=== PATIENT | female | born 1965 | race Hispanic/Latino ===

== ENCOUNTER 2017-06-27 12:34 | Emergency (ER) | payer BC, OTHER ==
[2017-06-27 14:12] LABS: Urine Blood TRACE (NEG); Urine Glucose NEGATIVE (NEG); Urine Protein NEGATIVE (NEG); Urine Specific Gravity <1.005 (1.005-1.030)
--- NOTE | 2017-06-27 14:33 | RAD REPORT ---
EXAM DESCRIPTION: CT - Head Brain Wo Cont - 06/27/2017 2:15 pm CLINICAL HISTORY: Headache COMPARISON: None. TECHNIQUE: All CT scans are performed using dose optimization technique as appropriate and may inclu de automated exposure control or mA/KV adjustment according to patient size. FINDINGS: No intracranial hemorrhage, hydrocephalus or extra-axial fluid collection.No areas of brai n edema or evidence of midline shift. The paranasal sinuses and mastoids are clear. The calvarium is intact. IMPRESSION: No acute intracranial abnormality.
--- NOTE | 2017-06-27 14:59 | RAD REPORT ---
EXAM DESCRIPTION: MRI - Brain Wo Cont - 06/27/2017 2:46 pm CLINICAL HISTORY: Headache, CVA, TIA. COMPARISON: CT head 06/27/2017 TECHNIQUE: Multi-sequence, multiplanar MR imaging of the brain was performed without contrast. FINDINGS: No intracranial hemorrhage, hydrocephalus or extra-axial fluid collections. No edema or sh ift of midline structures. No findings to suspect brain mass. DWI is negative for acute CVA. Midline structures are normally formed. Mastoid air cells and paranasal sinuses are clear. IMPRESSION: No acute or concerning intracranial abnormalities.
[2017-06-27 15:40] LABS: BUN Blood Urea Nitrogen 8 mg/dL (6-20); Bicarbonate 25 mEq/L (21-31); Glomerular Filtration Rate > 90 mL/min (=/>90); Glucose Level 93 mg/dL (65-120); Potassium 3.6 mEq/L (3.6-5.0); Sodium Level 142 mEq/L (135-145)
[2017-06-27] MEDS ORDERED: IBUPROFEN 400 MG TAB ONE (15:41)
[2017-06-27 15:46] LABS: Absolute Lymphocytes (CBC) 3.6 K/uL (0.7-4.9); Absolute Monocytes 0.5 K/uL (0.1-1.3); Absolute Neutrophil 5.1 K/uL (1.8-8.0); Basophils % 0.7 % (0-1.3); Eosinophils % 0.8 % (0-4.4); Hematocrit 45.4 % (36.0-45.0); Lymphocytes % 38.8 % (15.3-44.8); MCH 32.3 pg (27.0-35.0); MCV 95.4 fL (80-100); Monocytes % 5.3 % (3.3-12.3); RBC Red Blood Cell Count 4.76 M/uL (3.86-4.86)
--- NOTE | 2017-06-27 16:27 | EKG ---
Test Date: 2017-06-27 Test Time: 15:10:06 Therapist Occupational: [employer] RESULTS: Intervals: Rate: 56 NE: 126 QRSD: 80 QT: 484 QTc: 467 Wells: P: 23 NE: 126 QRS: 23 T: 36 INTERPRETIVE STATEMENTS: Sinus bradycardia Otherwise normal ECG No previous ECG available for comparison Electronically Signed On 06-27-17 16:26:41 CDT by Richard Horton
--- NOTE | 2017-06-27 16:39 | EDPHYS ---
Physician Documentation [facility] Name: Selin Ocampo Age: 52 yrs Sex: Female : 1965 Arrival Date: 06/27/2017 Time: 12:38 Bed 14 Private MD: ED Physician Darin Morataya HPI: 06/27 16:34 This 52 yrs old Female presents to ER via Ambulatory with complaints of rn Numbness Of Arm, Numbness Of Mouth, Headache. 16:34 The patient's problem is reported as paresthesias. The patient's problem is reported as rn paresthesias, in left upper extremity, in left side of face. Onset: The symptoms/episode began/occurred 1 week(s) ago. The symptoms are alleviated by nothing. The symptoms are aggravated by nothing. Severity of symptoms: At their worst the symptoms were mild in the emergency department the symptoms are unchanged. The patient has not experienced similar symptoms in the past. 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 . 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 - Social history:: Smoking status: Patient uses tobacco products, denies chronic smoking, but will smoke occasionally. - Family history:: not pertinent. - Hospitalizations: : No recent hospitalization is reported. ROS: 16:34 Constitutional: Negative for fever, chills, and weight loss, Eyes: Negative for injury, rn pain, redness, and discharge, Neck: Negative for injury, pain, and swelling, Cardiovascular: Negative for chest pain, palpitations, and edema, Respiratory: Negative for shortness of breath, cough, wheezing, and pleuritic chest pain, Abdomen/GI: Negative for abdominal pain, nausea, vomiting, diarrhea, and constipation, Back: Negative for injury and pain, MS/Extremity: Negative for injury and deformity, Skin: Negative for injury, rash, and discoloration, Neuro: Negative for headache, weakness, and seizure. Exam: 16:34 Constitutional: This is a well developed, well nourished patient who is awake, alert, rn and in no acute distress. Head/Face: Normocephalic, atraumatic. Eyes: Pupils equal round and reactive to light, extra-ocular motions intact. Lids and lashes normal. Conjunctiva and sclera are non-icteric and not injected. Cornea within normal limits. Periorbital areas with no swelling, redness, or edema. Neck: Trachea midline, no thyromegaly or masses palpated, and no cervical lymphadenopathy. Supple, full range of motion without nuchal rigidity, or vertebral point tenderness. No Meningismus. Cardiovascular: Regular rate and rhythm with a normal S1 and S2. No gallops, murmurs, or rubs. Normal PMI, no JVD. No pulse deficits. Respiratory: Lungs have equal breath sounds bilaterally, clear to auscultation and percussion. No rales, rhonchi or wheezes noted. No increased work of breathing, no retractions or nasal flaring. Abdomen/GI: Soft, non-tender, with normal bowel sounds. No distension or tympany. No guarding or rebound. No evidence of tenderness throughout. Back: No spinal tenderness. No costovertebral tenderness. Full range of motion. MS/ Extremity: Pulses equal, no cyanosis. Neurovascular intact. Full, normal range of motion. Equal circumference. Neuro: Awake and alert, GCS 15, oriented to person, place, time, and situation. Cranial nerves II-XII grossly intact. Motor strength 5/5 in all extremities. Mild decreased sensation to soft touch LUE distal to elbow, normal sensation of face. Cerebellar exam normal. Normal gait. Vital Signs: 13:13 BP 159 / 102; Pulse 66; Resp 18; Temp 97.8; Pulse Ox 98% on R/A; Weight 79.38 kg; ph Height 5 ft. 3 in. (160.02 cm); Pain 8/10; 14:10 BP 129 / 94; Pulse 67; Resp 19; Pulse Ox 99% on R/A; rb1 15:09 BP 129 / 76; Pulse 68; Resp 17; Pulse Ox 98% on R/A; rb1 16:00 BP 111 / 71; Pulse 58; Resp 19; Pulse Ox 97% on R/A; rb1 17:00 BP 101 / 76; Pulse 63; Resp 17; Pulse Ox 99% on R/A; rb1 13:13 Body Mass Index 31.00 (79.38 kg, 160.02 cm) ph MDM: 13:31 Patient medically screened. rn 16:34 Differential diagnosis: CVA, TIA, metabolic disorder. Differential diagnosis: rn radiculopathy. Data reviewed: vital signs, nurses notes, lab test result(s), EKG, radiologic studies, CT scan, MRI, and as a result, I will discharge patient. Counseling: I had a detailed discussion with the patient and/or guardian regarding: the historical points, exam findings, and any diagnostic results supporting the discharge/admit diagnosis, lab results, radiology results, the need for outpatient follow up, to return to the emergency department if symptoms worsen or persist or if there are any questions or concerns that arise at home. Response to treatment: the patient's symptoms have mildly improved after treatment. Special discussion: I discussed with the patient/guardian in detail that at this point there is no indication for admission to the hospital. It is understood, however, that if the symptoms persist or worsen the patient needs to return immediately for re-evaluation. 06/27 13:38 Order name: Urine Dipstick--Ancillary (enter results); Complete Time: 15:02 jw5 06/27 13:40 Order name: CBC with Diff; Complete Time: 16:39 06/27 13:40 Order name: CT Head Brain wo Cont; Complete Time: 15:02 06/27 13:40 Order name: Basic Metabolic Panel; Complete Time: 16:39 rn 06/27 13:41 Order name: Brain Wo Cont MRI; Complete Time: 15:02 rn 06/27 13:40 Order name: IV Start; Complete Time: 14:51 rn 06/27 13:40 Order name: EKG; Complete Time: 13:40 rn 06/27 13:40 Order name: EKG - Nurse/Tech; Complete Time: 20:09 rn Administered Medications: 15:43 Drug: Ibuprofen 800 mg Route: PO; rb1 16:09 Follow up: Response: No adverse reaction; Pain is decreased rb1 Disposition: 06/27/17 16:39 Discharged to Home. Impression: Paresthesia of skin, Radiculopathy, cervical region. - Condition is Stable. - Discharge Instructions: Cervical Radiculopathy, Paresthesia. - Prescriptions for Medrol (Estiven) 4 mg Oral Tablets, Dose Pack - take 1 tablet by ORAL route as directed - follow package instructions; 1 packet. - Medication Reconciliation Form, Thank You Letter, Antibiotic Education, Prescription Opioid Use form. - Follow up: Private Physician; When: As needed; Reason: Recheck today's complaints, Re-evaluation by your physician. - Problem is an ongoing problem. - Symptoms have improved. Signatures: Dispatcher [employer] EDDarin Maldonado MD MD rn Latasha Trivedi RN RN Yvonne Wharton RN RN rb1
--- NOTE | 2017-06-27 16:39 | ER ---
Nurse's Notes [facility] Name: Selin Ocampo Age: 52 yrs Sex: Female : 1965 Arrival Date: 06/27/2017 Time: 12:38 Bed 14 Private MD: Diagnosis: Paresthesia of skin;Radiculopathy, cervical region Presentation: 06/27 12:57 Acuity: Unassigned iw 13:09 Presenting complaint: Patient states: " About a week ago I started having a headache ph and my L arm got numb. I am also having numbness in the R side of my mouth." Pt reports that symptoms have been continuous since they began, reports feeling "lightheaded" when symptoms began. Transition of care: patient was not received from another setting of care. Onset of symptoms was June 27, 2017. Initial Sepsis Screen: Does the patient meet any 2 criteria? No. Patient's initial sepsis screen is negative. Does the patient have a suspected source of infection? No. Patient's initial sepsis screen is negative. Care prior to arrival: None. 13:09 Method Of Arrival: Ambulatory ph 13:09 Acuity: CHAD 3 ph Triage Assessment: 13:16 Headache History: Denies prior headaches. rb1 13:16 Pain: Pain began x 1 week ago. rb1 13:16 Pain: Also complains of no other associated symptoms. 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 - Social history:: Smoking status: Patient uses tobacco products, denies chronic smoking, but will smoke occasionally. - Family history:: not pertinent. - Hospitalizations: : No recent hospitalization is reported. Screenin:16 Abuse screen: Denies threats or abuse. Nutritional screening: No deficits noted. rb1 Tuberculosis screening: No symptoms or risk factors identified. Fall Risk None identified. Assessment: 13:16 General: Appears in no apparent distress. comfortable, Behavior is calm, cooperative. rb1 Pain: Complains of pain in left side of head Pain currently is 5 out of 10 on a pain scale. Neuro: Level of Consciousness is awake, alert, obeys commands, Oriented to person, place, time, situation. Neuro: Reports numbness in left arm and left side of face. Cardiovascular: Capillary refill < 3 seconds is brisk in bilateral fingers. Respiratory: Airway is patent Respiratory effort is even, unlabored, Respiratory pattern is regular, symmetrical. GI: No signs and/or symptoms were reported involving the gastrointestinal system. : No signs and/or symptoms were reported regarding the genitourinary system. Derm: Skin is dry, Skin is normal, Skin temperature is warm. Musculoskeletal: Range of motion: intact in all extremities. 14:11 Reassessment: Patient appears in no apparent distress at this time. No changes from rb1 previously documented assessment. 15:00 Reassessment: Patient appears in no apparent distress at this time. Patient and/or rb1 family updated on plan of care and expected duration. Pain level reassessed. Patient is alert, oriented x 3, equal unlabored respirations, skin warm/dry/pink. 16:00 Reassessment: Patient appears in no apparent distress at this time. No changes from rb1 previously documented assessment. 16:55 Reassessment: Discharge pending due to EKG, Dr. Morataya wants to see the EKG before the rb1 pt. is discharged. The EKG has been misplaced. 17:00 Reassessment: Patient appears in no apparent distress at this time. Patient and/or rb1 family updated on plan of care and expected duration. Pain level reassessed. Patient is alert, oriented x 3, equal unlabored respirations, skin warm/dry/pink. Vital Signs: 13:13 BP 159 / 102; Pulse 66; Resp 18; Temp 97.8; Pulse Ox 98% on R/A; Weight 79.38 kg; ph Height 5 ft. 3 in. (160.02 cm); Pain 8/10; 14:10 BP 129 / 94; Pulse 67; Resp 19; Pulse Ox 99% on R/A; rb1 15:09 BP 129 / 76; Pulse 68; Resp 17; Pulse Ox 98% on R/A; rb1 16:00 BP 111 / 71; Pulse 58; Resp 19; Pulse Ox 97% on R/A; rb1 17:00 BP 101 / 76; Pulse 63; Resp 17; Pulse Ox 99% on R/A; rb1 13:13 Body Mass Index 31.00 (79.38 kg, 160.02 cm) ph ED Course: 12:38 Patient arrived in ED. sb2 12:45 Patient's name was called from ER lobby. No response. ph 12:52 Triage completed. ph 13:16 Patient has correct armband on for positive identification. Bed in low position. Call rb1 light in reach. Side rails up X 1. Pulse ox on. NIBP on. 13:16 Arm band placed on right wrist. rb1 13:22 Inserted saline lock: 22 gauge in right antecubital area, using aseptic technique. rb1 ,using aseptic technique. Inserted by LEW Berg Blood collected. 13:26 Yvonne Francis, RN is Primary Nurse. rb1 13:31 Darin Morataya MD is Attending Physician. rn 14:15 CT Head Brain wo Cont In Process Unspecified. EDMS 14:15 CT completed. Patient tolerated procedure well. Patient moved to MRI via wheelchair. kc3 Patient moved back from CT. 14:37 Brain Wo Cont MRI In Process Unspecified. EDMS 14:48 MRI completed. Patient tolerated well. Patient moved back from MRI. ka 15:20 EKG done, by watch repair technician. reviewed by Darin Morataya MD. at1 17:30 No provider procedures requiring assistance completed. IV discontinued, intact, rb1 bleeding controlled, No redness/swelling at site. Pressure dressing applied. Administered Medications: 15:43 Drug: Ibuprofen 800 mg Route: PO; rb1 16:09 Follow up: Response: No adverse reaction; Pain is decreased rb1 Outcome: 16:39 Discharge ordered by MD. rn 17:30 Discharged to home ambulatory. rb1 17:30 Condition: stable 17:30 Discharge instructions given to patient, Instructed on discharge instructions, follow up and referral plans. medication usage, Demonstrated understanding of instructions, follow-up care, medications, Prescriptions given X 1. 17:37 Patient left the ED. rb1 Signatures: Dispatcher [employer] EDMS Radha Ontiveros RN RN Darin Morataya MD MD rn gonzales, Amanda, manager country EKG Tat1 Latasha Trivedi RN RN Yvonne Francis, RN RN rb1 Diana Yadav Kim kc3 Shelia Teague sb2 Corrections: (The following items were deleted from the chart) 12:54 12:47 Presenting complaint: Mother states: " We were at [facility] and I had just put her ph in the basket and she started crying that her neck hurt." Reports pt running fever x 3-4 days with cough. Pt appears drowsy ( Benadryl recently administered)and uncomfortable in triage, guarding neck on both sides, no nuchal rigidity noted. ph 12:54 12:47 Onset of symptoms was June 27, 2017 ph ph 12:54 12:47 Initial Sepsis Screen: Does the patient meet any 2 criteria? No. Patient's ph initial sepsis screen is negative. Does the patient have a suspected source of infection? No. Patient's initial sepsis screen is negative. ph 12:54 12:47 Transition of care: patient was not received from another setting of care. 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 No response. ph ph 12:55 12:54 Patient's name was called from ER [employer]. No response. ph ph
== END 2017-06-27 17:37 | disposition home or self-care (01) ==
LOC: ER 12:34
DX: M54.12 Radiculopathy, cervical region (principal); I10 Essential (primary) hypertension; Z72.0 Tobacco use
CPT/HCPCS: 36415; 70450; 70551; 80048; 81003; 85025; 93005; 99285

== ENCOUNTER 2019-03-25 11:58 | Emergency (ER) | payer SELFPAY ==
--- NOTE | 2019-03-25 12:46 | EDPHYS ---
Physician Documentation [facility] Name: Selin Ocampo Age: 53 yrs Sex: Female : 1965 Arrival Date: 03/25/2019 Time: 12:00 Bed 26 Private MD: ED Physician Kong Freeman HPI: 03/25 12:40 This 53 yrs old Female presents to ER via Ambulatory with complaints of pkl Headache. 12:40 The patient complains of pain to the forehead. The patient describes the headache as pkl constant. Onset: The symptoms/episode began/occurred last night, at 02:00, and improved this morning, Took 2 Tylenol 3 early this morning and feeling better now.. Associated signs and symptoms: Pertinent positives: nausea. The patient has experienced similar episodes in the past, a few times. 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 - Social history:: Smoking status: Patient uses tobacco products, smokes one-half pack cigarettes per day. - Ebola Screening: : Patient negative for fever greater than or equal to 101.5 degrees Fahrenheit, and additional compatible Ebola Virus Disease symptoms Patient denies exposure to infectious person Patient denies travel to an Ebola-affected area in the 21 days before illness onset No symptoms or risks identified at this time. ROS: 12:40 Eyes: Negative for injury, pain, redness, and discharge, ENT: Negative for injury, pkl pain, and discharge, Neck: Negative for injury, pain, and swelling, Cardiovascular: Negative for chest pain, palpitations, and edema, Respiratory: Negative for shortness of breath, cough, wheezing, and pleuritic chest pain, Abdomen/GI: Negative for abdominal pain, nausea, vomiting, diarrhea, and constipation, Back: Negative for injury and pain, : Negative for injury, bleeding, discharge, and swelling, MS/Extremity: Negative for injury and deformity, Skin: Negative for injury, rash, and discoloration. 12:40 Neuro: Positive for headache. Exam: 12:40 Head/Face: Normocephalic, atraumatic. Eyes: Pupils equal round and reactive to light, pkl extra-ocular motions intact. Lids and lashes normal. Conjunctiva and sclera are non-icteric and not injected. Cornea within normal limits. Periorbital areas with no swelling, redness, or edema. ENT: Nares patent. No nasal discharge, no septal abnormalities noted. Tympanic membranes are normal and external auditory canals are clear. Oropharynx with no redness, swelling, or masses, exudates, or evidence of obstruction, uvula midline. Mucous membranes moist. Neck: Trachea midline, no thyromegaly or masses palpated, and no cervical lymphadenopathy. Supple, full range of motion without nuchal rigidity, or vertebral point tenderness. No Meningismus. Chest/axilla: Normal chest wall appearance and motion. Nontender with no deformity. No lesions are appreciated. Cardiovascular: Regular rate and rhythm with a normal S1 and S2. No gallops, murmurs, or rubs. Normal PMI, no JVD. No pulse deficits. Respiratory: Lungs have equal breath sounds bilaterally, clear to auscultation and percussion. No rales, rhonchi or wheezes noted. No increased work of breathing, no retractions or nasal flaring. Abdomen/GI: Soft, non-tender, with normal bowel sounds. No distension or tympany. No guarding or rebound. No evidence of tenderness throughout. Back: No spinal tenderness. No costovertebral tenderness. Full range of motion. Skin: Warm, dry with normal turgor. Normal color with no rashes, no lesions, and no evidence of cellulitis. MS/ Extremity: Pulses equal, no cyanosis. Neurovascular intact. Full, normal range of motion. Neuro: Awake and alert, GCS 15, oriented to person, place, time, and situation. Cranial nerves II-XII grossly intact. Motor strength 5/5 in all extremities. Sensory grossly intact. Cerebellar exam normal. Normal gait. Vital Signs: 12:08 BP 147 / 97; Pulse 79; Resp 16; Temp 98.3; Pulse Ox 98% on R/A; Pain 5/10; iw 12:45 BP 137 / 79; Pulse 67; Resp 17 S; Pulse Ox 97% on R/A; ca1 MDM: 12:28 Patient medically screened. pkl 12:40 Data reviewed: vital signs, nurses notes. pkl Administered Medications: No medications were administered Disposition: 03/25/19 12:45 Discharged to Home. Impression: Migraine. - Condition is Stable. - Prescriptions for Tylenol- Codeine #3 300-30 mg Oral Tablet - take 1 tablet by ORAL route every 8 hours As needed; 15 tablet. Zofran 4 mg Oral Tablet - take 1 tablet by ORAL route every 12 hours As needed; 6 tablet. - Work release form, Medication Reconciliation Form, Thank You Letter, Antibiotic Education, Prescription Opioid Use form. - Follow up: Private Physician; When: 2 - 3 days; Reason: Re-evaluation by your physician. - Problem is new. - Symptoms have improved. Signatures: Kong Freeman MD MD pkl Radha Ontiveros RN RN iw Rebecca King RN RN ca1 Corrections: (The following items were deleted from the chart) 12:54 12:45 03/25/2019 12:45 Discharged to Home. Impression: Migraine. Condition is Stable. ca1 Forms are Medication Reconciliation Form, Thank You Letter, Antibiotic Education, Prescription Opioid Use. Follow up: Private Physician; When: 2 - 3 days; Reason: Re-evaluation by your physician. Problem is new. Symptoms have improved. pkl
--- NOTE | 2019-03-25 12:46 | ER ---
Nurse's Notes [facility] Name: Selin Ocampo Age: 53 yrs Sex: Female : 1965 Arrival Date: 03/25/2019 Time: 12:00 Bed 26 Private MD: Diagnosis: Migraine Presentation: 03/25 12:07 Presenting complaint: Patient states: 2 am woke up with migraine and nausea, +hx iw migraines, feels similar, took Tylenol with codeine EMBEDDER and regular Tylenol. Transition of care: patient was not received from another setting of care. Onset of symptoms was March 25, 2019. Risk Assessment: Do you want to hurt yourself or someone else? Patient reports no desire to harm self or others. Initial Sepsis Screen: Does the patient meet any 2 criteria? No. Patient's initial sepsis screen is negative. Does the patient have a suspected source of infection? No. Patient's initial sepsis screen is negative. Care prior to arrival: None. 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 - Social history:: Smoking status: Patient uses tobacco products, smokes one-half pack cigarettes per day. - Ebola Screening: : Patient negative for fever greater than or equal to 101.5 degrees Fahrenheit, and additional compatible Ebola Virus Disease symptoms Patient denies exposure to infectious person Patient denies travel to an Ebola-affected area in the 21 days before illness onset No symptoms or risks identified at this time. Screenin:25 Abuse screen: Denies threats or abuse. Denies injuries from another. Nutritional ca1 screening: No deficits noted. Tuberculosis screening: No symptoms or risk factors identified. Fall Risk None identified. Assessment: 12:25 General: Appears in no apparent distress. comfortable, Behavior is calm, cooperative, ca1 appropriate for age. Pain: Complains of pain in forehead Pain currently is 6 out of 10 on a pain scale. Pain began 1 day ago. Is intermittent. Neuro: Level of Consciousness is awake, alert, obeys commands, Oriented to person, place, time, situation, Appropriate for age. Cardiovascular: Heart tones S1 S2 present Capillary refill < 3 seconds Patient's skin is warm and dry. Respiratory: Airway is patent Respiratory effort is even, unlabored, Respiratory pattern is regular, symmetrical, Breath sounds are clear bilaterally. GI: Abdomen is round non-distended, Bowel sounds present X 4 quads. Abd is soft and non tender X 4 quads. Reports nausea. : No deficits noted. No signs and/or symptoms were reported regarding the genitourinary system. EENT: No deficits noted. No signs and/or symptoms were reported regarding the EENT system. Derm: Skin is intact, is healthy with good turgor, Skin is pink, warm \T\ dry. Musculoskeletal: Circulation, motion, and sensation intact. Capillary refill < 3 seconds, Range of motion: intact in all extremities. Vital Signs: 12:08 BP 147 / 97; Pulse 79; Resp 16; Temp 98.3; Pulse Ox 98% on R/A; Pain 5/10; iw 12:45 BP 137 / 79; Pulse 67; Resp 17 S; Pulse Ox 97% on R/A; ca1 ED Course: 12:00 Patient arrived in ED. mr 12:08 Triage completed. iw 12:09 Arm band placed on. iw 12:23 Rebecca King RN is Primary Nurse. ca1 12:25 Patient has correct armband on for positive identification. Bed in low position. Call ca1 light in reach. Side rails up X 1. Pulse ox on. NIBP on. 12:25 No provider procedures requiring assistance completed. Patient did not have IV access ca1 during this emergency room visit. 12:27 Kong Freeman MD is Attending Physician. pklonnie Administered Medications: No medications were administered Outcome: 12:45 Discharge ordered by . pkl 12:53 Discharged to home ambulatory. ca1 12:53 Condition: stable 12:53 Discharge instructions given to patient, Instructed on discharge instructions, follow up and referral plans. no drinking with medication, no driving heavy equipment, medication usage, Demonstrated understanding of instructions, follow-up care, medications, Prescriptions given X 2. 12:54 Patient left the ED. ca1 Signatures: Kong Freeman MD MD pkl Rivera, Mary mr Williams, Irene, RN RN Acob, Rebecca, RN RN ca1 Corrections: (The following items were deleted from the chart) 12:10 12:08 BP 141 / 110; Pulse 79bpm; Resp 16bpm; Pulse Ox 98% RA; Temp 98.3F; iw iw
[2019-03-25 13:28] VITALS: BP 137/79; O2SAT 97
[2019-03-25 13:29] VITALS: TEMP 98.3
== END 2019-03-25 12:54 | disposition home or self-care (01) ==
LOC: ER 11:58
DX: G43.909 Migraine, unspecified, not intractable, without status migrainosus (principal)
CPT/HCPCS: 99283

== ENCOUNTER 2019-12-30 08:54 | Emergency (ER) | payer OTHER, SELFPAY ==
[2019-12-30] MEDS ORDERED: KETOROLAC 30 MG/ML INJ ONE (09:27)
[2019-12-30] MEDS ORDERED: DIPHENHYDRAMINE 50 MG/ML VIAL ONE (09:27)
[2019-12-30] MEDS ORDERED: PROMETHAZINE INJ 25 MG/ML AMP ONE (09:27)
[2019-12-30] MEDS ORDERED: NA CHLORIDE 0.9% 1,000 ML ONE (09:27)
--- NOTE | 2019-12-30 11:03 | EDPHYS ---
Physician Documentation [facility] Name: Selin Ocampo Age: 54 yrs Sex: Female : 1965 Arrival Date: 12/30/2019 Time: 08:59 Bed 18 Private MD: ED Physician Jordan Quijano HPI: 12/29 16:23 This 54 yrs old Female presents to ER via Ambulatory with complaints of kdr Headache, Nausea. 16:23 The patient complains of pain to the top of head and forehead. The patient describes kdr the headache as aching, a pressure. Onset: The symptoms/episode began/occurred yesterday. Associated signs and symptoms: Pertinent positives: Pertinent negatives: altered mental status, dizziness, fever, malaise, nausea, neck stiffness, paresthesias, Photophobia rash, sinus congestion, sinus tenderness, vision changes, vision loss, vomiting. Severity of symptoms: At its worst the pain was mild, moderate, in the emergency department the pain is unchanged. Headache History: The patient has had previous headaches and this one is similar to previous episodes. The symptoms are alleviated by nothing. the symptoms are aggravated by nothing. The patient has experienced similar episodes in the past, a few times. The patient has not recently seen a physician. 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 - Social history:: Smoking status: Patient reports the use of cigarette tobacco products, smokes one pack cigarettes per day. ROS: 16:23 Constitutional: Negative for fever, chills, and weight loss, Eyes: Negative for injury, kdr pain, redness, and discharge, ENT: Negative for injury, pain, and discharge, Neck: Negative for injury, pain, and swelling, Cardiovascular: Negative for chest pain, palpitations, and edema, Respiratory: Negative for shortness of breath, cough, wheezing, and pleuritic chest pain, Abdomen/GI: Negative for abdominal pain, nausea, vomiting, diarrhea, and constipation, Back: Negative for injury and pain, : Negative for injury, bleeding, discharge, and swelling, MS/Extremity: Negative for injury and deformity, Skin: Negative for injury, rash, and discoloration, Psych: Negative for depression, anxiety, suicide ideation, homicidal ideation, and hallucinations, Allergy/Immunology: Negative for hives, rash, and allergies, Endocrine: Negative for neck swelling, polydipsia, polyuria, polyphagia, and marked weight changes, Hematologic/Lymphatic: Negative for swollen nodes, abnormal bleeding, and unusual bruising. 16:23 Neuro: Positive for headache, Negative for altered mental status, dizziness, gait disturbance, numbness, seizure activity, speech changes, syncope, near syncope, tinnitus, tremor, visual changes, weakness. Exam: 16:23 Constitutional: This is a well developed, well nourished patient who is awake, alert, kdr and in no acute distress. Head/Face: Normocephalic, atraumatic. Eyes: Pupils equal round and reactive to light, extra-ocular motions intact. Lids and lashes normal. Conjunctiva and sclera are non-icteric and not injected. Cornea within normal limits. Periorbital areas with no swelling, redness, or edema. Neck: Trachea midline, no thyromegaly or masses palpated, and no cervical lymphadenopathy. Supple, full range of motion without nuchal rigidity, or vertebral point tenderness. No Meningismus. Chest/axilla: Normal chest wall appearance and motion. Nontender with no deformity. No lesions are appreciated. Cardiovascular: Regular rate and rhythm with a normal S1 and S2. No gallops, murmurs, or rubs. Normal PMI, no JVD. No pulse deficits. Respiratory: Lungs have equal breath sounds bilaterally, clear to auscultation and percussion. No rales, rhonchi or wheezes noted. No increased work of breathing, no retractions or nasal flaring. Abdomen/GI: Soft, non-tender, with normal bowel sounds. No distension or tympany. No guarding or rebound. No evidence of tenderness throughout. Back: No spinal tenderness. No costovertebral tenderness. Full range of motion. Skin: Warm, dry with normal turgor. Normal color with no rashes, no lesions, and no evidence of cellulitis. MS/ Extremity: Pulses equal, no cyanosis. Neurovascular intact. Full, normal range of motion. Neuro: Awake and alert, GCS 15, oriented to person, place, time, and situation. Cranial nerves II-XII grossly intact. Motor strength 5/5 in all extremities. Sensory grossly intact. Cerebellar exam normal. Normal gait. Psych: Awake, alert, with orientation to person, place and time. Behavior, mood, and affect are within normal limits. Vital Signs: 09:08 BP 137 / 86; Pulse 98; Resp 16; Temp 97.4(TE); Pulse Ox 98% on R/A; Weight 68.04 kg; ss Height 5 ft. 3 in. (160.02 cm); Pain 6/10; 10:08 BP 111 / 75; Pulse 73; Resp 16; Pulse Ox 96% on R/A; tw2 11:00 BP 115 / 71; Pulse 69; Resp 17; Pulse Ox 96% on R/A; Pain 3/10; tw2 09:08 Body Mass Index 26.57 (68.04 kg, 160.02 cm) ss MDM: 11:02 Patient medically screened. kdr 16:23 Data reviewed: vital signs, nurses notes. Counseling: I had a detailed discussion with kdr the patient and/or guardian regarding: the historical points, exam findings, and any diagnostic results supporting the discharge/admit diagnosis, the need for outpatient follow up. 12/29 09:11 Order name: IV Start; Complete Time: 09:27 tw2 Administered Medications: 09:22 Drug: NS 0.9% 1000 ml Route: IV; Rate: 1 bolus; Site: left antecubital; tw2 10:59 Follow up: Response: No adverse reaction; IV Status: Completed infusion; IV Intake: tw2 1000ml 09:22 Drug: Phenergan 12.5 mg Route: IVP; Site: left antecubital; tw2 10:08 Follow up: Response: No adverse reaction tw2 09:24 Drug: TORadol - Ketorolac 15 mg Route: IVP; Site: left antecubital; tw2 10:08 Follow up: Response: No adverse reaction; Pain is decreased tw2 09:25 Drug: Benadryl 25 mg Route: IVP; Site: left antecubital; tw2 10:08 Follow up: Response: No adverse reaction tw2 Disposition: 12/30/19 11:02 Discharged to Home. Impression: Headache. - Condition is Stable. - Discharge Instructions: General Headache Without Cause, Migraine Headache, [id number]. - Medication Reconciliation Form, Thank You Letter, Work release form form. - Follow up: Private Physician; When: 2 - 3 days; Reason: If symptoms return, Further diagnostic work-up, Recheck today's complaints, Continuance of care, Re-evaluation by your physician. - Problem is an acute exacerbation. - Symptoms are resolved. Signatures: Jordan Quijano MD MD kdr Patricia Peterson RN RN Kinga Dcikerson RN RN tw2 Corrections: (The following items were deleted from the chart) 11:32 11:02 12/30/2019 11:02 Discharged to Home. Impression: Headache. Condition is Stable. tw2 Forms are Work release form, Medication Reconciliation Form, Thank You Letter, Antibiotic Education, Prescription Opioid Use. Follow up: Private Physician; When: 2 - 3 days; Reason: If symptoms return, Further diagnostic work-up, Recheck today's complaints, Continuance of care, Re-evaluation by your physician. Problem is an acute exacerbation. Symptoms are resolved. kdr
--- NOTE | 2019-12-30 11:03 | ER ---
Nurse's Notes [facility] Name: Selin Ocampo Age: 54 yrs Sex: Female : 1965 Arrival Date: 12/30/2019 Time: 08:59 Bed 18 Private MD: Diagnosis: Headache Presentation: 12/29 09:08 Chief complaint: Patient states: migraine that began yesterday and diarrhea this ss morning. Coronavirus screen: Client denies travel out of the [place] in the last 14 days. Ebola Screen: Patient denies exposure to infectious person. Patient denies travel to an Ebola-affected area in the 21 days before illness onset. Initial Sepsis Screen: Does the patient meet any 2 criteria? No. Patient's initial sepsis screen is negative. Does the patient have a suspected source of infection? No. Patient's initial sepsis screen is negative. Risk Assessment: Do you want to hurt yourself or someone else? Patient reports no desire to harm self or others. Onset of symptoms was December 29, 2019. 09:08 Method Of Arrival: Ambulatory ss 09:08 Acuity: CHAD 3 ss Triage Assessment: 09:11 Headache History: The patient has had previous headaches and this one is similar to tw2 previous episodes. 09:20 Pain: Pain currently is 7 out of 10 on a pain scale. Pain began 1 day ago. Also tw2 complains of nausea. 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 - Social history:: Smoking status: Patient reports the use of cigarette tobacco products, smokes one pack cigarettes per day. Screenin:04 Abuse screen: Denies threats or abuse. Nutritional screening: No deficits noted. tw2 Tuberculosis screening: No symptoms or risk factors identified. Fall Risk None identified. Assessment: 09:22 General: Appears in no apparent distress. slender, Behavior is calm, cooperative, tw2 appropriate for age. Pain: Complains of pain in headache. Neuro: Level of Consciousness is awake, alert, obeys commands, Oriented to person, place, time, situation, Reports headache and hx of migraines. Cardiovascular: Heart tones S1 S2 Patient's skin is warm and dry. Respiratory: Airway is patent Respiratory effort is even, unlabored, Respiratory pattern is regular, symmetrical, Breath sounds are clear bilaterally. GI: Abdomen is flat, Bowel sounds present X 4 quads. Reports nausea. : No signs and/or symptoms were reported regarding the genitourinary system. EENT: No signs and/or symptoms were reported regarding the EENT system. Musculoskeletal: Circulation, motion, and sensation intact. Range of motion: intact in all extremities. 10:09 Reassessment: Patient appears in no apparent distress at this time. Patient and/or tw2 family updated on plan of care and expected duration. Pain level reassessed. Patient is alert, oriented x 3, equal unlabored respirations, skin warm/dry/pink. Patient states symptoms have improved. 11:00 Reassessment: Patient appears in no apparent distress at this time. Patient and/or tw2 family updated on plan of care and expected duration. Pain level reassessed. Patient is alert, oriented x 3, equal unlabored respirations, skin warm/dry/pink. Patient states feeling better. Patient states symptoms have improved. 11:31 Reassessment: Patient appears in no apparent distress at this time. Patient and/or tw2 family updated on plan of care and expected duration. Pain level reassessed. Patient is alert, oriented x 3, equal unlabored respirations, skin warm/dry/pink. provider at bedside at this time with discharge information. Vital Signs: 09:08 BP 137 / 86; Pulse 98; Resp 16; Temp 97.4(TE); Pulse Ox 98% on R/A; Weight 68.04 kg; ss Height 5 ft. 3 in. (160.02 cm); Pain 6/10; 10:08 BP 111 / 75; Pulse 73; Resp 16; Pulse Ox 96% on R/A; tw2 11:00 BP 115 / 71; Pulse 69; Resp 17; Pulse Ox 96% on R/A; Pain 3/10; tw2 09:08 Body Mass Index 26.57 (68.04 kg, 160.02 cm) ED Course: 08:59 Patient arrived in ED. mr 09:02 Jordan Quijano MD is Attending Physician. kdr 09:04 Dickerson, Kinga, RN is Primary Nurse. tw2 09:04 Bed in low position. Call light in reach. Pulse ox on. NIBP on. tw2 09:12 Triage completed. ss 09:12 Arm band placed on right wrist. ss 09:22 Inserted saline lock: 22 gauge in left antecubital area, using aseptic technique. tw2 11:31 No provider procedures requiring assistance completed. IV discontinued, intact, tw2 bleeding controlled, No redness/swelling at site. Pressure dressing applied. Administered Medications: 09:22 Drug: NS 0.9% 1000 ml Route: IV; Rate: 1 bolus; Site: left antecubital; tw2 10:59 Follow up: Response: No adverse reaction; IV Status: Completed infusion; IV Intake: tw2 1000ml 09:22 Drug: Phenergan 12.5 mg Route: IVP; Site: left antecubital; tw2 10:08 Follow up: Response: No adverse reaction tw2 09:24 Drug: TORadol - Ketorolac 15 mg Route: IVP; Site: left antecubital; tw2 10:08 Follow up: Response: No adverse reaction; Pain is decreased tw2 09:25 Drug: Benadryl 25 mg Route: IVP; Site: left antecubital; tw2 10:08 Follow up: Response: No adverse reaction tw2 Intake: 10:59 IV: 1000ml; Total: 1000ml. tw2 Outcome: 11:02 Discharge ordered by . kdr 11:31 Discharged to home ambulatory. tw2 11:31 Condition: stable 11:31 Discharge instructions given to patient, Instructed on discharge instructions, follow up and referral plans. Demonstrated understanding of instructions, follow-up care. 11:32 Patient left the ED. tw2 Signatures: Jordan Quijano MD MD kdr Rivera, Mary mr Patricia Peterson, RN Kinga Andrews RN RN tw2
[2019-12-30 11:44] VITALS: TEMP 97.4
[2019-12-30 11:45] VITALS: O2SAT 96
[2019-12-30 11:47] VITALS: BP 115/71
== END 2019-12-30 11:32 | disposition home or self-care (01) ==
LOC: ER 08:54
DX: R51.9 Headache, unspecified (principal); F17.210 Nicotine dependence, cigarettes, uncomplicated
CPT/HCPCS: 96361; 96375; 96374; 99283; J2550; J1200; J7030

== ENCOUNTER 2020-01-19 14:05 | Emergency (ER) | payer OTHER ==
[2020-01-19] MEDS ORDERED: NA CHLORIDE 0.9% 1,000 ML ONE (14:55)
[2020-01-19] MEDS ORDERED: DIPHENHYDRAMINE 50 MG/ML VIAL ONE (14:55)
[2020-01-19] MEDS ORDERED: KETOROLAC 30 MG/ML INJ ONE (14:55)
[2020-01-19] MEDS ORDERED: METOCLOPRAMIDE 10 MG/2mL INJ ONE (14:55)
--- NOTE | 2020-01-19 14:58 | RAD REPORT ---
EXAM DESCRIPTION: CT - Head Brain Wo Cont - 01/19/2020 2:49 pm CLINICAL HISTORY: HEADACHE COMPARISON: Head Brain Wo Cont dated 06/27/2017 TECHNIQUE: All CT scans are performed using dose optimization technique as appropriate and may inclu de automated exposure control or mA/KV adjustment according to patient size. FINDINGS: No intracranial hemorrhage, hydrocephalus or extra-axial fluid collection.No areas of brai n edema or evidence of midline shift. The paranasal sinuses and mastoids are clear. The calvarium is intact. IMPRESSION: No acute intracranial abnormality.
--- NOTE | 2020-01-19 16:20 | ER ---
Nurse's Notes [facility] Name: Selin Ocampo Age: 54 yrs Sex: Female : 1965 Arrival Date: 01/19/2020 Time: 14:05 Bed 8 Private MD: Diagnosis: Headache Presentation: 01/18 14:32 Chief complaint: Patient states: Migraine and nausea started this morning, hx of jl7 migraines, feels like previous migraines. Coronavirus screen: Client denies travel out of the [place] in the last 14 days. At this time, the client does not indicate any symptoms associated with coronavirus-19. Ebola Screen: No symptoms or risks identified at this time. Initial Sepsis Screen: Does the patient meet any 2 criteria? No. Patient's initial sepsis screen is negative. Does the patient have a suspected source of infection? No. Patient's initial sepsis screen is negative. Risk Assessment: Do you want to hurt yourself or someone else? Patient reports no desire to harm self or others. Onset of symptoms was January 19, 2020. Care prior to arrival: None. Transition of care: patient was not received from another setting of care. 14:32 Method Of Arrival: Ambulatory 7 14:32 Acuity: CHAD 3 jl7 Triage Assessment: 14:35 General: Appears in no apparent distress. uncomfortable, Behavior is calm, cooperative, jl7 appropriate for age. Pain: Complains of pain in LANE Pain does not radiate. Pain currently is 7 out of 10 on a pain scale. Neuro: Level of Consciousness is awake, alert, obeys commands, Oriented to person, place, time, situation. Cardiovascular: Patient's skin is warm and dry. Respiratory: Airway is patent Respiratory effort is even, unlabored, Respiratory pattern is regular, symmetrical. GI: Reports nausea. Derm: Skin is pink, warm \T\ dry. 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 - Social history:: Smoking status: Patient reports the use of cigarette tobacco products, 3 cigarettes per day. Screenin:36 Abuse screen: Denies threats or abuse. Denies injuries from another. Nutritional jl7 screening: No deficits noted. Tuberculosis screening: No symptoms or risk factors identified. Fall Risk IV access (20 points). Total Gabriel Fall Scale indicates No Risk (0-24 pts). Assessment: 14:36 General: See triage assessment. GI: Reports nausea. jl7 Vital Signs: 14:32 BP 140 / 96; Pulse 98; Resp 17 S; Temp 98.4(O); Pulse Ox 99% on R/A; Weight 68.04 kg jl7 (R); Height 5 ft. 3 in. (160.02 cm) (R); Pain 7/10; 15:05 BP 120 / 87; Pulse 67; Resp 15; Pulse Ox 100% ; Pain 7/10; jl7 14:32 Body Mass Index 26.57 (68.04 kg, 160.02 cm) jl7 ED Course: 10:05 Inserted saline lock: 22 gauge in left antecubital area, using aseptic technique. Blood jl7 collected. 14:05 Patient arrived in ED. ds1 14:27 Clifton Barillas NP is PHCP. pm1 14:27 Ambrose Pacheco MD is Attending Physician. pm1 14:32 Eros Becker RN is Primary Nurse. jl7 14:34 Triage completed. jl7 14:35 Arm band placed on right wrist. jl7 14:36 Patient has correct armband on for positive identification. Bed in low position. Call jl7 light in reach. Side rails up X 1. Pulse ox on. NIBP on. 14:49 CT Head Brain wo Cont In Process Unspecified. EDMS 16:35 No provider procedures requiring assistance completed. IV discontinued, intact, iw bleeding controlled, No redness/swelling at site. Pressure dressing applied. Administered Medications: 15:05 Drug: NS 0.9% 1000 ml Route: IV; Rate: 1000 ml; Site: left antecubital; jl7 16:36 Follow up: IV Status: Completed infusion iw 15:06 Drug: Benadryl 25 mg Route: IVP; Site: left antecubital; jl7 16:36 Follow up: Response: No adverse reaction iw 15:08 Drug: TORadol - Ketorolac 15 mg Route: IVP; Site: left antecubital; jl7 16:36 Follow up: Response: No adverse reaction iw 15:10 Drug: Reglan 10 mg Route: IVP; Site: left antecubital; jl7 16:36 Follow up: Response: No adverse reaction; Pain is decreased iw Outcome: 16:20 Discharge ordered by MD. pm1 16:35 Discharged to home ambulatory. iw 16:35 Condition: good 16:35 Discharge instructions given to patient, Instructed on discharge instructions, follow up and referral plans. medication usage, Demonstrated understanding of instructions, follow-up care, medications, Prescriptions given X 1. 16:37 Patient left the ED. iw Signatures: Dispatcher [employer] EDMS Sussy August ds1 Radha Ontiveros RN RN iw Clifton Barillas, VICE PRESIDENT OF FINANCE VICE PRESIDENT OF FINANCE pm1 Eros Becker RN RN jl7
--- NOTE | 2020-01-19 16:20 | EDPHYS ---
Physician Documentation [facility] Name: Selin Ocampo Age: 54 yrs Sex: Female : 1965 Arrival Date: 01/19/2020 Time: 14:05 Bed 8 Private MD: PATY Physician Ambrose Pacheco HPI: 01/18 15:08 This 54 yrs old Female presents to ER via Ambulatory with complaints of pm1 Migraine, Nausea. 15:08 The patient complains of pain to the right synagogue and left synagogue. The patient pm1 describes the headache as aching. Onset: The symptoms/episode began/occurred this morning. Associated signs and symptoms: Pertinent positives: nausea, Pertinent negatives: dizziness, fever, vomiting. Severity of symptoms: in the emergency department the pain is unchanged. Headache History: The patient has had previous headaches and this one is similar to previous episodes. The symptoms are alleviated by nothing. the symptoms are aggravated by lights, noise. The patient has experienced similar episodes in the past, multiple times. The patient has not recently seen a physician. 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 - Social history:: Smoking status: Patient reports the use of cigarette tobacco products, 3 cigarettes per day. ROS: 15:08 Constitutional: Negative for fever, chills, and weight loss, Eyes: Negative for injury, pm1 pain, redness, and discharge, ENT: Negative for injury, pain, and discharge, Neck: Negative for injury, pain, and swelling, Cardiovascular: Negative for chest pain, palpitations, and edema, Respiratory: Negative for shortness of breath, cough, wheezing, and pleuritic chest pain, Back: Negative for injury and pain, MS/Extremity: Negative for injury and deformity, Skin: Negative for injury, rash, and discoloration. 15:08 Abdomen/GI: Positive for nausea, Negative for abdominal pain, vomiting, diarrhea. 15:08 Neuro: Positive for headache, of the left synagogue and right synagogue. Exam: 15:08 Constitutional: This is a well developed, well nourished patient who is awake, alert, pm1 and in no acute distress. Head/Face: Normocephalic, atraumatic. 15:08 Back: No spinal tenderness. No costovertebral tenderness. Full range of motion. Skin: Warm, dry with normal turgor. Normal color with no rashes, no lesions, and no evidence of cellulitis. MS/ Extremity: Pulses equal, no cyanosis. Neurovascular intact. Full, normal range of motion. 15:08 Cardiovascular: Exam negative for acute changes, Rate: normal, Rhythm: regular, Pulses: no pulse deficits are appreciated. 15:08 Respiratory: Exam negative for acute changes, respiratory distress, shortness of breath. 15:08 Abdomen/GI: Inspection: abdomen appears normal, Palpation: abdomen is soft and non-tender, in all quadrants. 15:08 Neuro: Orientation: is normal, Mentation: is normal, Cranial nerves: CN II- XII are normal as tested, Cerebellar function: normal finger to nose testing, Motor: is normal, moves all fours, Sensation: is normal, no obvious gross deficits. Vital Signs: 14:32 BP 140 / 96; Pulse 98; Resp 17 S; Temp 98.4(O); Pulse Ox 99% on R/A; Weight 68.04 kg jl7 (R); Height 5 ft. 3 in. (160.02 cm) (R); Pain 7/10; 15:05 BP 120 / 87; Pulse 67; Resp 15; Pulse Ox 100% ; Pain 7/10; jl7 14:32 Body Mass Index 26.57 (68.04 kg, 160.02 cm) jl7 MDM: 14:32 Patient medically screened. [facility] 15:07 Data reviewed: vital signs. Data interpreted: Pulse oximetry: on room air is 99 %. pm1 Interpretation: normal. 16:19 Counseling: I had a detailed discussion with the patient and/or guardian regarding: the pm1 historical points, exam findings, and any diagnostic results supporting the discharge/admit diagnosis, radiology results, the need for outpatient follow up, for definitive care, a neurologist, to return to the emergency department if symptoms worsen or persist or if there are any questions or concerns that arise at home. 01/18 14:37 Order name: CT Head Brain wo Cont; Complete Time: 15:00 pm1 01/18 14:37 Order name: IV Saline Lock; Complete Time: 15:15 pm1 Administered Medications: 15:05 Drug: NS 0.9% 1000 ml Route: IV; Rate: 1000 ml; Site: left antecubital; jl7 16:36 Follow up: IV Status: Completed infusion iw 15:06 Drug: Benadryl 25 mg Route: IVP; Site: left antecubital; jl7 16:36 Follow up: Response: No adverse reaction iw 15:08 Drug: TORadol - Ketorolac 15 mg Route: IVP; Site: left antecubital; jl7 16:36 Follow up: Response: No adverse reaction iw 15:10 Drug: Reglan 10 mg Route: IVP; Site: left antecubital; jl7 16:36 Follow up: Response: No adverse reaction; Pain is decreased iw Disposition: 01/19 08:58 Co-signature as Attending Physician, Ambrose Pacheco MD I agree with the assessment and elizabeth plan of care. Disposition: 01/19/20 16:20 Discharged to Home. Impression: Headache. - Condition is Stable. - Discharge Instructions: General Headache Without Cause, Migraine Headache. - Prescriptions for Fiorinal 50- 325-40 mg Oral Capsule - take 1 capsule by ORAL route every 4 hours As needed - not to exceed 6 capsules per day; 20 capsule. - Work release form, Medication Reconciliation Form, Thank You Letter, Antibiotic Education, Prescription Opioid Use form. - Follow up: Emergency Department; When: As needed; Reason: Worsening of condition. Follow up: Private Physician; When: 2 - 3 days; Reason: Recheck today's complaints, Continuance of care, Re-evaluation by your physician. - Problem is new. - Symptoms have improved. Signatures: Dispatcher [employer] Ambrose Roman MD MD cha Williams, Irene, RN RN iw Clifton Barillas NP WOOD EXPERIMENTAL MECHANIC pm1 Eros Becker RN RN jl7 Corrections: (The following items were deleted from the chart) 11 16:37 16:20 01/19/2020 16:20 Discharged to Home. Impression: Headache. Condition is Stable. iw Forms are Medication Reconciliation Form, Thank You Letter, Antibiotic Education, Prescription Opioid Use. Follow up: Emergency Department; When: As needed; Reason: Worsening of condition. Follow up: Private Physician; When: 2 - 3 days; Reason: Recheck today's complaints, Continuance of care, Re-evaluation by your physician. Problem is new. Symptoms have improved. pm1
[2020-01-19 16:51] VITALS: TEMP 98.4
[2020-01-19 16:52] VITALS: BP 120/87; O2SAT 100
== END 2020-01-19 16:37 | disposition home or self-care (01) ==
LOC: ER 14:05
DX: R51.9 Headache, unspecified (principal); I10 Essential (primary) hypertension; F17.210 Nicotine dependence, cigarettes, uncomplicated
CPT/HCPCS: 96361; 70450; 96375; 96374; 99284; J2765; J1200; J7030

== ENCOUNTER 2022-01-16 11:55 | Emergency (ER) | payer OTHER ==
--- OUTSIDE RECORDS SUMMARY | 2022-01-16 12:15 | XMS REPORT | Continuity of Care Document ---
:1965 Author Organization [facility] t Address [address] [place] [address] Care Team Providers Name Role Phone Estella Dodson Attending Clinician Unavailable Payers Payer Name Policy Type Policy Number Effective Date Expiration Date S ource ENTRUST CLAIMS C1 [id number] 2019 Common Spi rit TEAM 00:00:00 [facility] Problems Condition Condition Condition Status Onset Resolution Last Treating Co mments Source Name Details Category Date Date Treatment Clinician Date Generalize Generalize Problem Active C ommon d anxiety d anxiety Spir it disorder disorder [facility] Hypothyroi Hypothyroi Problem Active C ommon dism dism [facility] Migraine Migraines Problem Active Comm on [facility] Allergies, Adverse Reactions, Alerts This patient has no known allergies or adverse reactions. Social History Social Habit Start Date Stop Date Quantity Comments Source History of Tobacco Current Smoker Co mmon [facility] - [facility] Use [facility] Sex Assigned At Com mon [facility] Smoking Status Start Date Stop Date Source Current Smoker 2020-01-29 00:00:00 Common Spiri [facility] Medications Ordered Filled Start Stop Current Ordering Indication Dosage Frequency Signature Comments Components Source Medication Medication Date Date Medication? Clinician (SIG) Name Name Amitriptyli Amitriptyli No 1{table QD Amitriptyl ne HCl 50 ne HCl 50 t_at_be ine HCl 50 MG MG dtime} MG Sumatriptan Sumatriptan No BID Sumatripta Succinate Succinate n 50 MG 50 MG Succinate 50 MG Amitriptyli Amitriptyli No 1{table QD Amitriptyl ne HCl 50 ne HCl 50 t_at_be ine HCl 50 MG MG dtime} MG Sumatriptan Sumatriptan No BID Sumatripta Succinate Succinate n 50 MG 50 MG Succinate 50 MG Immunizations Ordered Immunization Filled Immunization Date Status Commen ts Source Name Name Afluria single dose Afluria single dose 2020-01-29 Completed Common [facility] 09:23:00 [facility] Afluria single dose Afluria single dose 2020-01-29 Completed [facility] 09:23:00 [facility] Vital Signs Vital Name Observation Time Observation Value Comments Source height 2020-01-29 09:00:00 63 [in_i] [facility] weight 2020-01-29 09:00:00 154.2 [lb_av] [facility] temperature 2020-01-29 09:00:00 98.4 [degF] [facility] bmi 2020-01-29 09:00:00 27.31 kg/m2 [facility] oximetry 2020-01-29 09:00:00 98 % [facility] respiratory rate 2020-01-29 09:00:00 18 /min Comm on [facility] blood pressure 2020-01-29 09:00:00 124 mm[Hg] [facility] - systolic [facility] blood pressure 2020-01-29 09:00:00 84 mm[Hg] [facility] diastolic [facility] Procedures This patient has no known procedures. Encounters Start End Encounter Admission Attending Care Care Encounter Source Date/Time Date/Time Type Type Clinicians Facility Department ID 2021-04-07 Outpatient Formerly [facility] [id number] Common 12:07:24 Estella Montejo20 [facility] 2021-04-07 Outpatient [facility] [id number] Common 12:06:16 Estella [id number] [facility] 2020-01-30 2020-01-30 (TEL) [facility] [id number] Co mmon 00:00:00 00:00:00 [facility] 2020-01-29 2020-01-29 OFFICE [facility] [id number] Co mmon 00:00:00 00:00:00 VISIT [facility] PT LEVEL 3 - [facility] Results This patient has no known results.
--- NOTE | 2022-01-16 13:11 | EDPHYS ---
Physician Documentation [facility] Name: Selin Ocampo Age: 56 yrs Sex: Female : 1965 Arrival Date: 01/16/2022 Time: 11:57 Bed 24 Private MD: ED Physician Derian Arias HPI: 01/16 12:52 This 56 yrs old Female presents to ER via Ambulatory with complaints of Sore snw Throat, Migraine. 12:52 The patient presents with sore throat. The patient describes throat pain as dry, raw. snw Onset: The symptoms/episode began/occurred suddenly, 2 day(s) ago, and became persistent. Severity of symptoms: At their worst the symptoms were moderate. Associated signs and symptoms: Pertinent positives: flu-like symptoms, malaise. It is unknown whether or not the patient has had similar symptoms in the past. It is unknown whether or not the patient has recently seen a physician. 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 - Social history:: Smoking status: unknown. ROS: 12:50 Eyes: Negative for injury, pain, redness, and discharge. snw 12:50 Neck: Negative for injury, pain, and swelling, Cardiovascular: Negative for chest pain, palpitations, and edema, Respiratory: Negative for shortness of breath, cough, wheezing, and pleuritic chest pain, Abdomen/GI: Negative for abdominal pain, nausea, vomiting, diarrhea, and constipation, Back: Negative for injury and pain, : Negative for injury, bleeding, discharge, and swelling, MS/Extremity: Negative for injury and deformity, Skin: Negative for injury, rash, and discoloration. 12:50 Constitutional: Positive for body aches, fatigue, malaise. 12:50 ENT: Positive for sinus congestion, sore throat. 12:50 Neuro: Positive for headache. Exam: 12:49 Constitutional: This is a well developed, well nourished patient who is awake, alert, snw and in no acute distress. Head/Face: Normocephalic, atraumatic. Eyes: Pupils equal round and reactive to light, extra-ocular motions intact. Lids and lashes normal. Conjunctiva and sclera are non-icteric and not injected. Cornea within normal limits. Periorbital areas with no swelling, redness, or edema. Neck: Trachea midline, no thyromegaly or masses palpated, and no cervical lymphadenopathy. Supple, full range of motion without nuchal rigidity, or vertebral point tenderness. No Meningismus. Chest/axilla: Normal chest wall appearance and motion. Nontender with no deformity. No lesions are appreciated. Cardiovascular: Regular rate and rhythm with a normal S1 and S2. No gallops, murmurs, or rubs. Normal PMI, no JVD. No pulse deficits. Respiratory: Lungs have equal breath sounds bilaterally, clear to auscultation and percussion. No rales, rhonchi or wheezes noted. No increased work of breathing, no retractions or nasal flaring. Abdomen/GI: Soft, non-tender, with normal bowel sounds. No distension or tympany. No guarding or rebound. No evidence of tenderness throughout. Back: No spinal tenderness. No costovertebral tenderness. Full range of motion. Skin: Warm, dry with normal turgor. Normal color with no rashes, no lesions, and no evidence of cellulitis. MS/ Extremity: Pulses equal, no cyanosis. Neurovascular intact. Full, normal range of motion. Neuro: Awake and alert, GCS 15, oriented to person, place, time, and situation. Cranial nerves II-XII grossly intact. Motor strength 5/5 in all extremities. Sensory grossly intact. Cerebellar exam normal. Normal gait. Psych: Awake, alert, with orientation to person, place and time. Behavior, mood, and affect are within normal limits. 12:49 ENT: External ear(s): are unremarkable, Ear canal(s): are normal, TM's: are normal, Nose: no acute changes, Posterior pharynx: erythema, that is moderate, Voice: is normal. Vital Signs: 12:10 BP 129 / 91; Pulse 89; Resp 16; Temp 98.9; Pulse Ox 100% on R/A; Weight 65.77 kg; hb Height 5 ft. 3 in. (160.02 cm); Pain 6/10; 12:36 BP 106 / 80; Pulse 78; Resp 16; Temp 98.9(O); Pulse Ox 99% on R/A; Pain 5/10; eh3 13:27 BP 117 / 87; Pulse 75; Resp 16; Pulse Ox 95% on R/A; eh3 12:10 Body Mass Index 25.69 (65.77 kg, 160.02 cm) hb MDM: 12:36 Patient medically screened. snw 13:12 Data reviewed: vital signs, nurses notes. Data interpreted: Pulse oximetry: on room air snw is 99 %. Interpretation: normal. Counseling: I had a detailed discussion with the patient and/or guardian regarding: the historical points, exam findings, and any diagnostic results supporting the discharge/admit diagnosis, lab results, the need for outpatient follow up, to return to the emergency department if symptoms worsen or persist or if there are any questions or concerns that arise at home. Special discussion: Based on the history and exam findings, there is no indication for further emergent testing or inpatient evaluation. I discussed with the patient/guardian the need to see the primary care provider for further evaluation of the symptoms. 01/16 12:25 Order name: Strep; Complete Time: 13:09 snw 01/16 12:25 Order name: Flu; Complete Time: 13:09 snw 01/16 13:12 Order name: Throat Culture EDMS Administered Medications: 13:27 Drug: Ketorolac 60 mg Route: IM; Site: right deltoid; eh3 13:39 Follow up: Response: No adverse reaction 3 Disposition: 17:11 Co-signature as Attending Physician, Derian RAMIREZ was immediately available onsite ms3 in the emergency department for consultation in the care of the patient. Disposition Summary: 01/16/22 13:10 Discharge Ordered Location: Home snw Condition: Stable snw Diagnosis - Acute bronchitis, unspecified snw - Acute pharyngitis, unspecified snw Followup: snw - With: Emergency Department - When: As needed - Reason: Worsening of condition Followup: snw - With: Private Physician - When: 2 - 3 days - Reason: Recheck today's complaints, Continuance of care, Re-evaluation by your physician Discharge Instructions: - Discharge Summary Sheet snw - Acute Bronchitis, Adult snw - Pharyngitis snw Forms: - Medication Reconciliation Form snw - Thank You Letter snw - Antibiotic Education snw - Prescription Opioid Use snw - Work release form snw Prescriptions: - Zyrtec 10 mg Oral Tablet - take 1 tablet by ORAL route once daily As needed; 20 tablet; Refills: 0, snw Product Selection Permitted - Prednisone 20 mg Oral Tablet - take 2 tablets by ORAL route once daily for 5 days; 10 tablet; Refills: 0, snw Product Selection Permitted - Pepcid 20 mg Oral Tablet - take 1 tablet by ORAL route once daily; 20 tablet; Refills: 0, Product snw Selection Permitted Signatures: Dispatcher [employer] EDMS Emi Zuniga, SOFTWARE ASSET MANAGEMENT ANALYST-C SOFTWARE ASSET MANAGEMENT ANALYST-Csnw Magui Herrera, RN RN Derian Arias DO DO ms3 Stacy Trivedi, RN RN eh3
--- NOTE | 2022-01-16 13:11 | ER ---
Nurse's Notes [facility] Name: Selin Ocampo Age: 56 yrs Sex: Female : 1965 Arrival Date: 01/16/2022 Time: 11:57 Bed 24 Private MD: Diagnosis: Acute bronchitis, unspecified;Acute pharyngitis, unspecified Presentation: 01/16 12:10 Chief complaint: Sore throat, fatigue, headache, and diarrhea x 2-3 days. Coronavirus hb screen: Client presents with at least one sign or symptom that may indicate coronavirus-19. Standard/surgical mask placed on the client. Provider contacted for isolation considerations. Ebola Screen: No symptoms or risks identified at this time. Initial Sepsis Screen: Does the patient meet any 2 criteria? No. Patient's initial sepsis screen is negative. Does the patient have a suspected source of infection? No. Patient's initial sepsis screen is negative. Risk Assessment: Do you want to hurt yourself or someone else? Patient reports no desire to harm self or others. Onset of symptoms was January 14, 2022. 12:10 Method Of Arrival: Ambulatory hb 12:10 Acuity: CHAD 4 hb Triage Assessment: 12:11 General: Appears in no apparent distress. Behavior is calm, cooperative. Neuro: Level hb of Consciousness is awake, alert, obeys commands, Oriented to person, place, time, situation. Cardiovascular: Patient's skin is warm and dry. Respiratory: Respiratory effort is even, unlabored, Respiratory pattern is regular, symmetrical. 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 - Social history:: Smoking status: unknown. Screenin:36 Abuse screen: Denies threats or abuse. Denies injuries from another. Nutritional eh3 screening: No deficits noted. Tuberculosis screening: No symptoms or risk factors identified. Fall Risk None identified. Assessment: 12:36 General: Appears in no apparent distress. uncomfortable, Behavior is calm, cooperative, eh3 appropriate for age. Pain: Complains of pain in head Pain does not radiate. Pain currently is 5 out of 10 on a pain scale. at worst was 9 out of 10 on a pain scale. Quality of pain is described as aching, pressure, throbbing, Pain began 2-3 days ago. Is intermittent. Neuro: Level of Consciousness is awake, alert, obeys commands, Oriented to person, place, time, situation. Cardiovascular: Capillary refill < 3 seconds Patient's skin is warm and dry. Respiratory: Airway is patent Respiratory effort is even, unlabored, Respiratory pattern is regular, symmetrical, Breath sounds are clear bilaterally. Denies shortness of breath. GI: Abdomen is round non-distended, Reports diarrhea. : No signs and/or symptoms were reported regarding the genitourinary system. EENT: Throat is reddened has enlarged tonsils. Derm: No signs and/or symptoms reported regarding the dermatologic system. Musculoskeletal: No signs and/or symptoms reported regarding the musculoskeletal system. 13:27 Reassessment: Patient and/or family updated on plan of care and expected duration. Pain eh3 level reassessed. Patient is alert, oriented x 3, equal unlabored respirations, skin warm/dry/pink. Vital Signs: 12:10 BP 129 / 91; Pulse 89; Resp 16; Temp 98.9; Pulse Ox 100% on R/A; Weight 65.77 kg; hb Height 5 ft. 3 in. (160.02 cm); Pain 6/10; 12:36 BP 106 / 80; Pulse 78; Resp 16; Temp 98.9(O); Pulse Ox 99% on R/A; Pain 5/10; eh3 13:27 BP 117 / 87; Pulse 75; Resp 16; Pulse Ox 95% on R/A; eh3 12:10 Body Mass Index 25.69 (65.77 kg, 160.02 cm) ED Course: 11:57 Patient arrived in ED. rg4 12:06 [facility]iga [facility]C [facility] snw 12:06 Derian Arias DO is Attending Physician. snw 12:11 Triage completed. hb 12:21 Stacy Trivedi, RN is Primary Nurse. eh3 12:35 Flu Sent. eh3 12:35 Strep Sent. eh3 12:36 Patient has correct armband on for positive identification. Bed in low position. Call eh3 light in reach. Side rails up X2. Pulse ox on. NIBP on. Door closed. Noise minimized. Lights dimmed. Warm blanket given. PO fluids given. 12:36 Arm band placed on right wrist. eh3 13:37 No provider procedures requiring assistance completed. eh3 13:38 Patient did not have IV access during this emergency room visit. eh3 Administered Medications: 13:27 Drug: Ketorolac 60 mg Route: IM; Site: right deltoid; eh3 13:39 Follow up: Response: No adverse reaction eh3 Medication: 13:37 VIS not applicable for this client. eh3 Outcome: 13:10 Discharge ordered by MD. rao 13:39 Discharged to home ambulatory. eh3 13:39 Condition: stable 13:39 Discharge instructions given to patient, Instructed on discharge instructions, follow up and referral plans. medication usage, Demonstrated understanding of instructions, follow-up care, medications, Prescriptions given X 3. 13:39 Patient left the ED. eh3 Signatures: Emi Zuniga, PRECISION INSPECTOR-C PRECISION INSPECTOR-Csnw Magui Herrera, RN RN Naa Shetty rg4 Stacy Trivedi RN RN 3
[2022-01-16] MEDS ORDERED: KETOROLAC 30 MG/ML INJ ONE (13:25)
[2022-01-16 13:49] VITALS: TEMP 98.9
[2022-01-16 14:01] VITALS: BP 117/87; O2SAT 95
== END 2022-01-16 13:39 | disposition home or self-care (01) ==
LOC: ER 11:55
DX: J20.9 Acute bronchitis, unspecified (principal); J02.9 Acute pharyngitis, unspecified; I10 Essential (primary) hypertension
CPT/HCPCS: 87070; 87081; 87804; 96372; 99284

== ENCOUNTER 2022-01-19 09:14 | Emergency (ER) | payer OTHER ==
--- OUTSIDE RECORDS SUMMARY | 2022-01-19 09:17 | XMS REPORT | Continuity of Care Document ---
:1965 Author Organization [facility] t Address [address] [place] [address] Care Team Providers Name Role Phone Estella Dodson Attending Clinician Unavailable Payers Payer Name Policy Type Policy Number Effective Date Expiration Date S ource ENTRUST CLAIMS C1 [id number] 2019 Common Spi rit TEAM 00:00:00 [facility] Problems Condition Condition Condition Status Onset Resolution Last Treating Co mments Source Name Details Category Date Date Treatment Clinician Date Generalize Generalize Problem Active C ommon d anxiety d anxiety Spir it disorder disorder [facility] Hypothyroi Hypothyroi Problem Active C ommon dism dism [facility] Migraine Migraines Problem Active Comm on [facility] Allergies, Adverse Reactions, Alerts This patient has no known allergies or adverse reactions. Social History Social Habit Start Date Stop Date Quantity Comments Source History of Tobacco Current Smoker Co mmon [facility] Use [facility] Sex Assigned At Com mon [facility] Smoking Status Start Date Stop Date Source Current Smoker 2020-01-29 00:00:00 Common [facility] Medications Ordered Filled Start Stop Current Ordering [...] dose Afluria single dose 2020-01-29 Completed Common [facility] 09:23:00 [facility] Afluria single dose Afluria single dose 2020-01-29 Completed [facility] 09:23:00 [facility] Vital Signs Vital Name Observation Time Observation Value Comments Source height 2020-01-29 09:00:00 63 [in_i] [facility] weight 2020-01-29 09:00:00 154.2 [lb_av] [facility] temperature 2020-01-29 09:00:00 98.4 [degF] [facility] bmi 2020-01-29 09:00:00 27.31 kg/m2 [facility] oximetry 2020-01-29 09:00:00 98 % [facility] respiratory rate 2020-01-29 09:00:00 18 /min Comm on [facility] blood pressure 2020-01-29 09:00:00 124 mm[Hg] [facility] - systolic [facility] blood pressure 2020-01-29 09:00:00 84 mm[facility]Hg[facility] Procedures This patient has no known procedures. Encounters Start End Encounter Admission Attending Care Care Encounter Source Date/Time Date/Time Type Type Clinicians Facility Department ID 2021-04-07 Outpatient [facility] [id number] Common 12:07:24 Estella Montejo20 [facility] 2021-04-07 Outpatient [facility] [id number] Common 12:06:16 Estella [id number] [facility] 2020-01-30 2020-01-30 (TEL) [facility] [id number] Co mmon 00:00:00 00:00:00 [facility] 2020-01-29 2020-01-29 OFFICE [facility] [id number] Co mmon 00:00:00 00:00:00 VISIT PRUDENCIO [facility] PT LEVEL 3 - [facility] Results This patient has no known results.
--- NOTE | 2022-01-19 09:33 | ER ---
Nurse's Notes [facility] Name: Selin Ocampo Age: 56 yrs Sex: Female : 1965 Arrival Date: 01/19/2022 Time: 09:16 Bed 12 Private MD: Diagnosis: Acute pharyngitis, unspecified Presentation: 01/19 09:19 Chief complaint: Patient states: i was here Monday and diagnosed with bronchitis, my iw head and throat is still hurting, I was supposed to go back to work today but I was still feeling bad. Coronavirus screen: Client presents with at least one sign or symptom that may indicate coronavirus-19. Ebola Screen: Patient negative for fever greater than or equal to 101.5 degrees Fahrenheit, and additional compatible Ebola Virus Disease symptoms Patient denies exposure to infectious person. Patient denies travel to an Ebola-affected area in the 21 days before illness onset. No symptoms or risks identified at this time. Initial Sepsis Screen: Does the patient meet any 2 criteria? No. Patient's initial sepsis screen is negative. Does the patient have a suspected source of infection? No. Patient's initial sepsis screen is negative. Risk Assessment: Do you want to hurt yourself or someone else? Patient reports no desire to harm self or others. Onset of symptoms was January 19, 2022. 09:19 Method Of Arrival: Ambulatory iw 09:19 Acuity: CHAD 4 iw Historical: - Allergies: 09:20 No Known Allergies; iw - Home Meds: 09:20 None [Active]; iw - PMHx: 09:20 Hypertension; Hypothyroidism; Migraines; iw Vital Signs: 09:19 BP 128 / 101; Pulse 81; Resp 16; Temp 98.3; Pulse Ox 100% on R/A; iw ED Course: 09:16 Patient arrived in ED. mr 09:17 [facility] snw 09:17 Jordan Quijano MD is Attending Physician. snw 09:20 Triage completed. iw 09:20 Arm band placed on. iw 09:32 Radha Ontiveros, RN is Primary Nurse. iw Administered Medications: No medications were administered Outcome: 09:32 Discharge ordered by . snw 10:04 Patient left the ED. iw Signatures: Emi Zuniga FNP-C FNP-Csnw Lewis, An mr Radha Ontiveros, RN RN iw
--- NOTE | 2022-01-19 09:33 | EDPHYS ---
Physician Documentation [facility] Name: Selin Ocampo Age: 56 yrs Sex: Female : 1965 Arrival Date: 01/19/2022 Time: 09:16 Bed 12 Private MD: ED Physician Jordan Quijano HPI: 01/19 09:30 This 56 yrs old Female presents to ER via Ambulatory with complaints of Sore snw Throat, Headache. 09:30 The patient presents with sore throat. The patient describes throat pain as raw, snw scratchy. Onset: The symptoms/episode began/occurred acutely, 4 day(s) ago. Severity of symptoms: At their worst the symptoms were moderate. Associated signs and symptoms: Pertinent positives: flu-like symptoms, headache, Sore throat. It is unknown whether or not the patient has had similar symptoms in the past. The patient has been recently seen by a physician: The patient has been recently seen at the [facility], this week, for similar complaints labs were performed, FLU A/B, strep negative. Throat culture - normal mike. Historical: - Allergies: 09:20 No Known Allergies; iw - Home Meds: 09:20 None [Active]; iw - PMHx: 09:20 Hypertension; Hypothyroidism; Migraines; iw ROS: 09:29 Eyes: Negative for injury, pain, redness, and discharge. snw 09:29 Neck: Negative for injury, pain, and swelling, Cardiovascular: Negative for chest pain, palpitations, and edema. 09:29 Abdomen/GI: Negative for abdominal pain, nausea, vomiting, diarrhea, and constipation, Back: Negative for injury and pain, MS/Extremity: Negative for injury and deformity, Skin: Negative for injury, rash, and discoloration, Neuro: Negative for headache, weakness, numbness, tingling, and seizure, Psych: Negative for depression, anxiety, suicide ideation, homicidal ideation, and hallucinations. 09:29 Constitutional: Positive for body aches, chills, fatigue, fever, malaise. 09:29 ENT: Positive for sore throat. 09:29 Respiratory: Positive for cough. Exam: 09:29 Constitutional: This is a well developed, well nourished patient who is awake, alert, snw and in no acute distress. Head/Face: Normocephalic, atraumatic. Eyes: Pupils equal round and reactive to light, extra-ocular motions intact. Lids and lashes normal. Conjunctiva and sclera are non-icteric and not injected. Cornea within normal limits. Periorbital areas with no swelling, redness, or edema. 09:29 Neck: Trachea midline, no thyromegaly or masses palpated, and no cervical lymphadenopathy. Supple, full range of motion without nuchal rigidity, or vertebral point tenderness. No Meningismus. Chest/axilla: Normal chest wall appearance and motion. Nontender with no deformity. No lesions are appreciated. Cardiovascular: Regular rate and rhythm with a normal S1 and S2. No gallops, murmurs, or rubs. Normal PMI, no JVD. No pulse deficits. Respiratory: Lungs have equal breath sounds bilaterally, clear to auscultation and percussion. No rales, rhonchi or wheezes noted. No increased work of breathing, no retractions or nasal flaring. Abdomen/GI: Soft, non-tender, with normal bowel sounds. No distension or tympany. No guarding or rebound. No evidence of tenderness throughout. Back: No spinal tenderness. No costovertebral tenderness. Full range of motion. Skin: Warm, dry with normal turgor. Normal color with no rashes, no lesions, and no evidence of cellulitis. MS/ Extremity: Pulses equal, no cyanosis. Neurovascular intact. Full, normal range of motion. Neuro: Awake and alert, GCS 15, oriented to person, place, time, and situation. Cranial nerves II-XII grossly intact. Motor strength 5/5 in all extremities. Sensory grossly intact. Cerebellar exam normal. Normal gait. 09:29 ENT: Posterior pharynx: erythema, that is moderate, Voice: is normal. Vital Signs: 09:19 BP 128 / 101; Pulse 81; Resp 16; Temp 98.3; Pulse Ox 100% on R/A; iw MDM: 09:25 Patient medically screened. snw 09:32 Data reviewed: vital signs, nurses notes. Data interpreted: Pulse oximetry: on room air snw is 100 %. Interpretation: normal. Counseling: I had a detailed discussion with the patient and/or guardian regarding: the historical points, exam findings, and any diagnostic results supporting the discharge/admit diagnosis, the need for outpatient follow up, for definitive care, to return to the emergency department if symptoms worsen or persist or if there are any questions or concerns that arise at home. Special discussion: Based on the history and exam findings, there is no indication for further emergent testing or inpatient evaluation. I discussed with the patient/guardian the need to see the primary care provider for further evaluation of the symptoms. Administered Medications: No medications were administered Disposition: 10:57 Co-signature as Attending Physician, Jordan Quijano MD I agree with the assessment and kdr plan of care. Disposition Summary: 01/19/22 09:32 Discharge Ordered Location: Home snw Condition: Stable snw Diagnosis - Acute pharyngitis, unspecified snw Followup: snw - With: Emergency Department - When: As needed - Reason: Worsening of condition Followup: snw - With: Private Physician - When: 2 - 3 days - Reason: Recheck today's complaints, Continuance of care, Re-evaluation by your physician Discharge Instructions: - Discharge Summary Sheet snw - Acute Bronchitis, Adult snw - Pharyngitis snw Forms: - Work release form snw - Medication Reconciliation Form snw - Thank You Letter snw - Antibiotic Education snw - Prescription Opioid Use snw Prescriptions: - Carafate 1 gram Oral Tablet - take 1 tablet by ORAL route 4 times per day take on an empty stomach, beginning snw on waking and last dose at bedtime; 100 tablet; Refills: 0, Product Selection Permitted Signatures: Jordan Quijano MD MD kdr Waters, Shelly, FNP-C [facility]-Pilarw Radha Ontiveros RN RN iw
[2022-01-19 10:08] VITALS: BP 128/101; TEMP 98.3; O2SAT 100
== END 2022-01-19 10:04 | disposition home or self-care (01) ==
LOC: ER 09:14
DX: J02.9 Acute pharyngitis, unspecified (principal)
CPT/HCPCS: 99281

== ENCOUNTER 2022-02-11 16:37 | Emergency (ER) | payer OTHER ==
--- OUTSIDE RECORDS SUMMARY | 2022-02-11 16:40 | XMS REPORT | Continuity of Care Document ---
:[address] [facility] t Address [address] [place] [address] Care Team Providers Name Role Phone Estella Dodson Attending Clinician Unavailable Payers Payer Name Policy Type Policy Number Effective Date Expiration Date S ource ENTRUST CLAIMS C1 [id number] 2019 Common Spi rit TEAM 00:00:00 [facility] Problems Condition Condition Condition Status Onset Resolution Last Treating Co mments Source Name Details Category Date Date Treatment Clinician Date Generalize Generalize Problem Active C ommon d anxiety d anxiety Spir it disorder disorder [facility] Hypothyroi Hypothyroi Problem Active C ommon dism dism [facility] Migraine Migraines Problem Active Comm on [facility] Allergies, Adverse Reactions, Alerts This patient has no known allergies or adverse reactions. Social History Social Habit Start Date Stop Date Quantity Comments Source History of Tobacco Current Smoker Co mmon Spirit - [facility] Use [facility] Sex Assigned At Com mon [facility] Smoking Status Start Date Stop Date Source Current Smoker 2020-01-29 00:00:00 Common [facility] Medications Ordered Filled Start Stop Current [...] dose Afluria single dose 2020-01-[address] [facility] 09:23:00 [facility] Afluria single dose Afluria single dose 2020-01-29 Completed [facility] 09:23:00 [facility] Vital Signs Vital Name Observation Time Observation Value Comments Source height 2020-01-29 09:00:00 63 [in_i] [facility] weight 2020-01-29 09:00:00 154.2 [lb_av] [facility] temperature 2020-01-29 09:00:00 98.4 [degF] [facility] bmi 2020-01-29 09:00:00 27.31 kg/m2 [facility] oximetry 2020-01-29 09:00:00 98 % [facility] respiratory rate 2020-01-29 09:00:00 18 /min Comm on [facility] blood pressure 2020-01-29 09:00:00 124 mm[Hg] [facility] - systolic [facility] blood pressure 2020-01-29 09:00:00 84 mm[Hg] [facility] diastolic [facility] Procedures This patient has no known procedures. Encounters Start End Encounter Admission Attending Care Care Encounter Source Date/Time Date/Time Type Type Clinicians Facility Department ID 2021-04-07 Outpatient [facility] [id number] Common 12:07:24 Estella Montejo20 [facility] 2021-04-07 Outpatient [facility] [id number] Common 12:06:16 Estella [id number] [facility] 2020-01-30 2020-01-30 (TEL) [facility] [id number] Co mmon 00:00:00 00:00:00 [facility] 2020-01-29 2020-01-29 OFFICE [facility] [id number] Co mmon 00:00:00 00:00:00 VISIT PRUDENCIO [facility] PT LEVEL 3 - [facility] Results This patient has no known results.
[2022-02-11] MEDS ORDERED: DIPHENHYDRAMINE 50 MG/ML VIAL ONE (17:23)
[2022-02-11] MEDS ORDERED: NA CHLORIDE 0.9% 1,000 ML ONE (17:23)
[2022-02-11] MEDS ORDERED: KETOROLAC 30 MG/ML INJ ONE (17:23)
[2022-02-11] MEDS ORDERED: METOCLOPRAMIDE 10 MG/2mL INJ ONE (17:23)
--- NOTE | 2022-02-11 19:02 | ER ---
Nurse's Notes [facility] Name: Selin Ocampo Age: 56 yrs Sex: Female : 1965 Arrival Date: 02/11/2022 Time: 16:39 Bed 25 Private MD: Diagnosis: Migraine without aura, not intractable Presentation: 02/11 16:49 Chief complaint: Patient states: Headache since this morning with associated nausea. kb3 Reports headache is similar to previous migraines. Coronavirus screen: Vaccine status: Patient reports receiving the 2nd dose of the covid vaccine. Client denies travel out of the [place] in the last 14 days. Ebola Screen: Patient negative for fever greater than or equal to 101.5 degrees Fahrenheit, and additional compatible Ebola Virus Disease symptoms Patient denies exposure to infectious person. Patient denies travel to an Ebola-affected area in the 21 days before illness onset. Initial Sepsis Screen: Does the patient meet any 2 criteria? No. Patient's initial sepsis screen is negative. Does the patient have a suspected source of infection? No. Patient's initial sepsis screen is negative. Risk Assessment: Do you want to hurt yourself or someone else? Patient reports no desire to harm self or others. Onset of symptoms was February 11, 2022 at 08:00. 16:49 Method Of Arrival: Ambulatory [facility] 16:49 Acuity: CHAD 3 kb3 Triage Assessment: 16:51 Headache History: The patient has had previous headaches and this one is similar to kb3 previous episodes. General: Appears in no apparent distress. Behavior is calm, cooperative. Pain: Complains of pain in right caodaism, left caodaism and right frontal area Pain does not radiate. Pain currently is 8 out of 10 on a pain scale. Quality of pain is described as aching, throbbing, Pain began suddenly, Also complains of nausea. Neuro: No deficits noted. Reports headache. 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 - Social history:: Smoking status: Patient reports the use of cigarette tobacco products, smokes one-half pack cigarettes per day. Screenin:09 Abuse screen: Denies threats or abuse. Nutritional screening: No deficits noted. em6 Tuberculosis screening: No symptoms or risk factors identified. 17:36 Fall Risk IV access (20 points). Total Gabriel Fall Scale indicates No Risk (0-24 pts). em6 Assessment: 17:12 General: Appears comfortable, Behavior is cooperative. Pain: Complains of pain in face em6 and right frontal area and left caodaism and right caodaism Pain does not radiate. Pain currently is 8 out of 10 on a pain scale. Quality of pain is described as throbbing. Neuro: Level of Consciousness is awake, alert, obeys commands, Oriented to person, place, time, situation. Cardiovascular: Patient's skin is warm and dry. Respiratory: Airway is patent Respiratory effort is even, unlabored, Respiratory pattern is regular, symmetrical. GI: Reports nausea. : No signs and/or symptoms were reported regarding the genitourinary system. EENT: No signs and/or symptoms were reported regarding the EENT system. Derm: No signs and/or symptoms reported regarding the dermatologic system. Musculoskeletal: Circulation, motion, and sensation intact. Range of motion: intact in all extremities. 18:10 Reassessment: Patient appears in no apparent distress at this time. No changes from em6 previously documented assessment. Patient and/or family updated on plan of care and expected duration. Pain level reassessed. Patient is alert, oriented x 3, equal unlabored respirations, skin warm/dry/pink. 19:10 Reassessment: Patient appears in no apparent distress at this time. No changes from em6 previously documented assessment. Patient and/or family updated on plan of care and expected duration. Pain level reassessed. Patient is alert, oriented x 3, equal unlabored respirations, skin warm/dry/pink. Vital Signs: 16:49 BP 119 / 80; Pulse 98; Resp 20; Temp 98.4; Pulse Ox 99% ; Weight 65.77 kg; Height 5 ft. kb3 4 in. (162.56 cm); Pain 9/10; 18:00 BP 101 / 61; Pulse 82; Resp 18; Pulse Ox 100% on R/A; em6 19:00 BP 104 / 66; Pulse 84; Resp 18; Pulse Ox 100% on R/A; em6 16:49 Body Mass Index 24.89 (65.77 kg, 162.56 cm) kb3 Milton Coma Score: 19:24 Eye Response: spontaneous(4). Verbal Response: oriented(5). Motor Response: obeys kb commands(6). Total: 15. ED Course: 16:39 Patient arrived in ED. mr 16:51 Triage completed. kb3 16:51 Arm band placed on right wrist. kb3 16:54 Rosalia Banuel[facility]-C [facility] kb 16:54 Darin Morataya MD is Attending Physician. kb 17:09 Ana Arias, LEW is Primary Nurse. em6 17:09 Placed in gown. Bed in low position. Call light in reach. Side rails up X 1. Cardiac em6 monitor on. Pulse ox on. NIBP on. Warm blanket given. 17:25 Inserted saline lock: 20 gauge in left antecubital area, using aseptic technique. em6 19:22 No provider procedures requiring assistance completed. IV discontinued, intact, em6 bleeding controlled, No redness/swelling at site. Pressure dressing applied. Administered Medications: 17:34 Drug: Ketorolac 15 mg Route: IVP; Site: left antecubital; em6 18:00 Follow up: Response: No adverse reaction em6 17:35 Drug: NS 0.9% 1000 ml Route: IV; Rate: 1000 ml; Site: left antecubital; em6 19:01 Follow up: Response: No adverse reaction; IV Status: Completed infusion; IV Intake: em6 1000ml 17:35 Drug: Reglan (metoCLOPramide) 10 mg Route: IVP; Site: left antecubital; em6 18:00 Follow up: Response: No adverse reaction em6 17:35 Drug: Benadryl (diphenhydrAMINE) 12.5 mg Route: IVP; Site: left antecubital; em6 18:00 Follow up: Response: No adverse reaction em6 Medication: 19:22 VIS not applicable for this client. em6 Intake: 19:01 IV: 1000ml; Total: 1000ml. em6 Outcome: 19:01 Discharge ordered by . kb 19:22 Discharged to home ambulatory. em6 19:22 Condition: stable 19:22 Discharge instructions given to patient, Instructed on discharge instructions, follow up and referral plans. Demonstrated understanding of instructions, follow-up care. 19:23 Patient left the ED. em6 Signatures: Rosalia Banuelos FNP-C FNP-An Tang Erika RN RN em6 Aaliyah Jerez RN RN kb3 Corrections: (The following items were deleted from the chart) 19:01 19:01 Response: No adverse reaction; IV Intake: 1000ml em6 em6
--- NOTE | 2022-02-11 19:02 | EDPHYS ---
Physician Documentation [facility] Name: Selin Ocampo Age: 56 yrs Sex: Female : 1965 Arrival Date: 02/11/2022 Time: 16:39 Bed 25 Private MD: ED Physician Darin Morataya HPI: 02/11 19:25 This 56 yrs old Female presents to ER via Ambulatory with complaints of kb Headache. 19:25 The patient complains of pain to the left caodaism and right caodaism. The patient kb describes the headache as throbbing. Onset: The symptoms/episode began/occurred this morning. Associated signs and symptoms: The patient has no apparent associated signs or symptoms. Severity of symptoms: At its worst the pain was moderate, in the emergency department the pain is unchanged. Headache History: The patient has had previous headaches and this one is similar to previous episodes. The symptoms are alleviated by nothing. the symptoms are aggravated by lights, noise. The patient has experienced similar episodes in the past. The patient has not recently seen a physician. 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 - Social history:: Smoking status: Patient reports the use of cigarette tobacco products, smokes one-half pack cigarettes per day. ROS: 19:25 Constitutional: Negative for fever, chills, and weight loss. kb 19:25 Neuro: Positive for headache. 19:25 All other systems are negative. Exam: 19:25 Constitutional: This is a well developed, well nourished patient who is awake, alert, kb and in no acute distress. Head/Face: Normocephalic, atraumatic. Eyes: Pupils equal round and reactive to light, extra-ocular motions intact. Lids and lashes normal. Conjunctiva and sclera are non-icteric and not injected. Cornea within normal limits. Periorbital areas with no swelling, redness, or edema. ENT: Moist Mucous membranes Cardiovascular: Regular rate and rhythm with a normal S1 and S2. No gallops, murmurs, or rubs. No pulse deficits. Respiratory: Respirations even and unlabored. No increased work of breathing. Talking in full sentences Abdomen/GI: Soft, non-tender. No distention Skin: Warm, dry with normal turgor. Normal color. MS/ Extremity: Pulses equal, no cyanosis. Neurovascular intact. Full, normal range of motion. Neuro: Awake and alert, GCS 15, oriented to person, place, time, and situation. Moves all extremities. Normal gait. Psych: Awake, alert, with orientation to person, place and time. Behavior, mood, and affect are within normal limits. Vital Signs: 16:49 BP 119 / 80; Pulse 98; Resp 20; Temp 98.4; Pulse Ox 99% ; Weight 65.77 kg; Height 5 ft. kb3 4 in. (162.56 cm); Pain 9/10; 18:00 BP 101 / 61; Pulse 82; Resp 18; Pulse Ox 100% on R/A; em6 19:00 BP 104 / 66; Pulse 84; Resp 18; Pulse Ox 100% on R/A; em6 16:49 Body Mass Index 24.89 (65.77 kg, 162.56 cm) kb3 [place] Coma Score: 19:24 Eye Response: spontaneous(4). Verbal Response: oriented(5). Motor Response: obeys kb commands(6). Total: 15. MDM: 17:01 Patient medically screened. kb 19:24 Data reviewed: vital signs, nurses notes. Data interpreted: Pulse oximetry: on room air kb is 100 %. Interpretation: normal. Counseling: I had a detailed discussion with the patient and/or guardian regarding: the historical points, exam findings, and any diagnostic results supporting the discharge/admit diagnosis, the need for outpatient follow up, a family practitioner, a neurologist, to return to the emergency department if symptoms worsen or persist or if there are any questions or concerns that arise at home. Response to treatment: the patient's symptoms have resolved after treatment. 02/11 17:18 Order name: IV Start; Complete Time: 17:34 kb Administered Medications: 17:34 Drug: Ketorolac 15 mg Route: IVP; Site: left antecubital; em6 18:00 Follow up: Response: No adverse reaction em6 17:35 Drug: NS 0.9% 1000 ml Route: IV; Rate: 1000 ml; Site: left antecubital; em6 19:01 Follow up: Response: No adverse reaction; IV Status: Completed infusion; IV Intake: em6 1000ml 17:35 Drug: Reglan (metoCLOPramide) 10 mg Route: IVP; Site: left antecubital; em6 18:00 Follow up: Response: No adverse reaction em6 17:35 Drug: Benadryl (diphenhydrAMINE) 12.5 mg Route: IVP; Site: left antecubital; em6 18:00 Follow up: Response: No adverse reaction em6 Disposition Summary: 02/11/22 19:01 Discharge Ordered Location: Home kb Condition: Stable kb Diagnosis - Migraine without aura, not intractable kb Followup: kb - With: Emergency Department - When: As needed - Reason: Worsening of condition Followup: kb - With: Private Physician - When: 2 - 3 days - Reason: Recheck today's complaints, Continuance of care, Re-evaluation by your physician Discharge Instructions: - Discharge Summary Sheet kb - Migraine Headache, [id number] kb Forms: - Medication Reconciliation Form kb - Thank You Letter kb - Antibiotic Education kb - Prescription Opioid Use kb Addendum: 02/15/2022 13:54 Co-signature as Attending Physician, Darin Mortaaya MD. r n Signatures: Rosalia Banuelos FNP-C TOAN-Darin Denton MD MD rn Martinez, Erika, RN RN em6 Aaliyah Jerez RN RN kb3
[2022-02-11 19:46] VITALS: TEMP 98.4
[2022-02-11 19:47] VITALS: O2SAT 100
[2022-02-11 19:48] VITALS: BP 104/66
== END 2022-02-11 19:23 | disposition home or self-care (01) ==
LOC: ER 16:37
DX: G43.009 Migraine without aura, not intractable, without status migrainosus (principal); I10 Essential (primary) hypertension; F17.210 Nicotine dependence, cigarettes, uncomplicated
CPT/HCPCS: 96361; 96375; 96374; 99284; J2765; J1200; J7030

== ENCOUNTER 2024-07-09 15:42 | Emergency (ER) | payer SELFPAY ==
--- NOTE | 2024-07-09 16:12 | RAD REPORT ---
EXAMINATION: Shoulder Left 2+ Views CLINICAL INDICATION: Female, 59 years old. PAIN COMPARISON: No prior exam. FINDINGS: No acute fracture. No malalignment/dislocation. Moderate left AC joint degenerative changes. Mild left glenohumeral joint spurring. Other: n/a IMPRESSION: No acute osseous abnormality.
[2024-07-09] MEDS ORDERED: KETOROLAC 30 MG/ML INJ ONE (17:01)
[2024-07-09] MEDS ORDERED: methocarbamoL 750 MG TAB ONE (17:01)
--- NOTE | 2024-07-09 17:16 | ER ---
Nurse's Notes [facility] Name: Selin Ocampo Age: 59 yrs Sex: Female : 1965 Arrival Date: 07/09/2024 Time: 15:42 Bed 23 Private MD: Diagnosis: Other sprain of left shoulder joint Presentation: 07/09 15:52 Chief complaint: Patient states: Left shoulder pain - felt a pop when lifting two days ld1 ago. Coronavirus screen: At this time, the client does not indicate any symptoms associated with coronavirus-19. Ebola Screen: No symptoms or risks identified at this time. Initial Sepsis Screen: Does the patient meet any 2 criteria? No. Patient's initial sepsis screen is negative. Does the patient have a suspected source of infection? No. Patient's initial sepsis screen is negative. Risk Assessment: Do you want to hurt yourself or someone else? Patient reports no desire to harm self or others. Onset of symptoms was July 09, 2024. 15:52 Method Of Arrival: Ambulatory ld1 15:52 Acuity: CHAD 4 ld1 Triage Assessment: 15:52 General: Appears in no apparent distress. comfortable, Behavior is calm, cooperative, ld1 appropriate for age. Pain: Complains of pain in anterior aspect of left shoulder Pain does not radiate. Pain currently is 7 out of 10 on a pain scale. Quality of pain is described as throbbing, Pain began suddenly, Is continuous. EENT: No signs and/or symptoms were reported regarding the EENT system. Neuro: Level of Consciousness is awake, alert, obeys commands, Oriented to person, place, time, situation. Cardiovascular: Capillary refill < 3 seconds Patient's skin is warm and dry. Respiratory: Airway is patent Respiratory effort is even, unlabored. GI: Abdomen is round non-distended. : No signs and/or symptoms were reported regarding the genitourinary system. Derm: No signs and/or symptoms reported regarding the dermatologic system. Musculoskeletal: No signs and/or symptoms reported regarding the musculoskeletal system. Historical: - Allergies: 15:52 No Known Allergies; ld1 - PMHx: 15:52 Hypertension; Hypothyroidism; Migraines; ld1 - Immunization history:: Adult Immunizations up to date. - Infectious Disease History:: Denies. - Social history:: Smoking status: Patient reports the use of cigarette tobacco products, smokes one-half pack cigarettes per day, Patient/guardian denies using alcohol. Vital Signs: 15:52 Pulse 96; Resp 18; Temp 97.2(TE); Pulse Ox 99% on R/A; Height 5 ft. 4 in. ; Pain 7/10; ld1 15:53 BP 139 / 87; ld1 15:52 Pain Scale: Adult ld1 ED Course: 15:47 Patient arrived in ED. im 15:49 Margaret Billings PA-C is PHCP. sb4 15:49 Derian Arias DO is Attending Physician. sb4 15:52 Triage completed. ld1 15:52 Arm band placed on right wrist. ld1 16:11 Shoulder Left (2 View) XRAY In Process Unspecified. EDMS 16:57 Radha Ontiveros, RN is Primary Nurse. iw 17:15 Ramone Price MD is Referral Physician. sb4 Administered Medications: 17:18 Drug: Methocarbamol PO 750 mg PO once Route: PO; iw 17:18 Drug: Ketorolac IM 30 mg IM once Route: IM; Site: right deltoid; iw Outcome: 17:15 Discharge ordered by . sb4 17:36 Patient left the ED. iw Signatures: Dispatcher [employer] Radha Loera RN RN iw Emilie Arias RN RN ld1 Margaret Billings PA-C PA-C sb4 Azalia Chamberlain im
--- NOTE | 2024-07-09 17:16 | EDPHYS ---
Physician Documentation [facility] Name: Selin Ocampo Age: 59 yrs Sex: Female : 1965 Arrival Date: 07/09/2024 Time: 15:42 Bed 23 Private MD: ED Physician Derina Arias HPI: 07/09 15:54 This 59 yrs old Female presents to ER via Ambulatory with complaints of sb4 Shoulder Pain - Left. 15:54 Patient reports chronic left shoulder issues, but states she was lifting something 2 sb4 days ago and heard a pop and has had worsening pain since. Reports a decrease in range of motion and pain when she does attempt to raise her left arm. Denies any numbness or tingling. Reports the pain is mainly in the anterior shoulder radiating down to the humerus. Historical: - Allergies: 15:52 No Known Allergies; ld1 - PMHx: 15:52 Hypertension; Hypothyroidism; Migraines; ld1 - Immunization history:: Adult Immunizations up to date. - Infectious Disease History:: Denies. - Social history:: Smoking status: Patient reports the use of cigarette tobacco products, smokes one-half pack cigarettes per day, Patient/guardian denies using alcohol. ROS: 15:54 Constitutional: Negative for fever, chills, and weight loss, sb4 15:54 MS/extremity: Positive for injury or acute deformity, pain, of the anterior aspect of left shoulder, 15:54 All other systems are negative, Exam: 15:54 Constitutional: This is a well developed, well nourished patient who is awake, alert, sb4 and in no acute distress. Head/Face: Normocephalic, atraumatic. Eyes: Extra-ocular motions intact. Periorbital areas with no swelling, redness, or edema. ENT: Mucous membranes moist. Respiratory: No increased work of breathing, no retractions or nasal flaring. Skin: Warm, dry with normal turgor. Normal color with no rashes, no lesions, and no evidence of cellulitis. 15:54 Musculoskeletal/extremity: Joints: the left shoulder displays limited range of motion, pain at rest, painful range of motion, tenderness, Vital Signs: 15:52 Pulse 96; Resp 18; Temp 97.2(TE); Pulse Ox 99% on R/A; Height 5 ft. 4 in. ; Pain 7/10; ld1 15:53 BP 139 / 87; ld1 15:52 Pain Scale: Adult ld1 MDM: 15:49 Medical Screening Exam initiated sb4 17:15 Data reviewed: vital signs, nurses notes, radiologic studies, and as a result, I will sb4 discharge patient. Counseling: I had a detailed discussion with the patient and/or guardian regarding the historical points, exam findings, and any diagnostic results supporting the discharge/admit diagnosis, radiology results, the need for outpatient follow up, a orthopedic surgeon, to return to the emergency department if symptoms worsen or persist or if there are any questions or concerns that arise at home. 07/09 15:53 Order name: Shoulder Left (2 View) XRAY; Complete Time: 16:17 sb4 07/09 16:42 Order name: Shoulder Immobilizer; Complete Time: 17:19 sb4 Administered Medications: 17:18 Drug: Methocarbamol PO 750 mg PO once Route: PO; iw 17:18 Drug: Ketorolac IM 30 mg IM once Route: IM; Site: right deltoid; iw Disposition: 17:47 I was immediately available on-site in the Emergency Department for consultation in the ms3 care of the patient. Disposition Summary: 07/09/24 17:15 Discharge Ordered Notes: Location: Home sb4 Problem: new sb4 Symptoms: have improved sb4 Condition: Stable sb4 Diagnosis - Other sprain of left shoulder joint sb4 Followup: sb4 - With: Ramone Price MD - When: 1 week - Reason: Recheck today's complaints, Re-evaluation by your physician Discharge Instructions: - Discharge Summary Sheet sb4 - Shoulder Sprain sb4 Forms: - Work release form sb4 - Patient Portal Instructions sb4 - Leadership Thank You Letter sb4 Prescriptions: - Ibuprofen 800 mg Oral Tablet - take 1 tablet ORAL route every 8 hours As needed take with food; 30 tablet; sb4 Refills: 0, Product Selection Permitted - methocarbamol 750 mg Oral tablet - take 1 tablet ORAL route every 6 hours; 20 tablet; Refills: 0, Product sb4 Selection Permitted Signatures: Dispatcher [employer] Radha Loera RN RN iw Derian Arias, DO ms3 Emilie Arias RN RN ld1 Brown, Margaret, PA-C PA-C sb4
== END 2024-07-09 17:36 | disposition home or self-care (01) ==
LOC: ER 15:42
DX: S43.492A Other sprain of left shoulder joint, initial encounter (principal)